=== PATIENT | female | born 1945 | race African-American/Black ===

== ENCOUNTER 2018-05-18 22:14 | Inpatient (IN) | payer MEDICARE ==
[~2018-05-18] VITALS: Ht 160 cm
[~2018-05-18 22:14] MED LIST: ALBUTEROL2.5 MG/0.5 INH; ALDACTONE25 MG PO; BENADRYL INJ50 MG/ML IV; BOUDREAUXS113 GM TP; COMBIVENT INH14.7 GM INH; CORDARONE200 MG PO; COREG 3.1253.125 MG PO; EUCERIN CREAM120 GM TP; EUCERIN ORIGIN500 ML TP; FLAGYL500 MG PO; FLORANEX / LACT1 TAB PO; GYNE-LOTRIMIN45 GM TP; HEPARIN SOD5000 U/ML SQ; HUMALOG 30100 UNITS/; HUMULIN N100 U/ML SC; HYDRALAZINE20 MG/ML IV; HYDROCHLOROTH12.5 M1; IPRAT-ALBUT 0.5-3 ML IH; K-DUR20 MEQ PO; LASIX40 MG PO; LASIX80 MG PO; LISINOPRIL2.5 MG; LOPRESSOR I5 MG/5 ML IV; MEGACE400 MG/10 PO; MOBIC7.5 MG; PEPCID20 MG PO; PROTONIX 40 MG40 MG IV; QUESTRAN PACK4 G/PKT PO; SALINE FLUSH10 ML IV; VANCOCIN HCL250 MG PO; VANCOMYCIN250 MG/51 PO; ZAROXOLYN5 MG PO
[2018-05-18] MEDS ORDERED: CALCIUM 600 +1 EAC3 PO (22:23)
[2018-05-18 23:08] LABS: BASOPHILS 0.2 % (0-2); EOSINOPHILS 0.3 % (0-7); HEMATOCRIT 40.7 % (36.0-48.0); HEMOGLOBIN 13.9 g/dL (12-16); IMMATURE GRANULOCYTES 0.4 % (0-5); LYMPHOCYTES 7.3 % (15-50); MCHC 34.2 g/dL (31.0-37.0); MCV 79.2 fL (80.0-100.0); MEAN PLATELET VOLUME 10.7 fL (7.4-10.4); MONOCYTES 6.7 % (2-11); NEUTROPHILS 85.1 % (40-80); PLATELET COUNT 314 10x3/uL (130-400); RBC 5.14 10x6/uL (4.00-5.40); RDW 15.9 % (11.5-14.5); WBC 12.1 10x3/uL (4.8-10.8)
[2018-05-18 23:17] LABS: ALBUMIN 3.1 g/dL (3.4-5.0); ALKALINE PHOSPHATASE 64 U/L (46-116); ALT (SGPT) 27 U/L (10-68); BILIRUBIN - TOTAL 0.94 mg/dL (0.2-1.3); CALC OSMOLALITY 276 mosm/kg (275-300); CALCIUM 9.6 mg/dL (8.5-10.1); CARBON DIOXIDE 31.2 mmol/L (21.0-32.0); CHLORIDE - SERUM 94 mmol/L (98-107); CREATININE - SERUM 1.5 mg/dL (0.6-1.3); POTASSIUM - SERUM 3.8 mmol/L (3.5-5.1); PROTEIN - SERUM 8.4 g/dL (6.4-8.2); SODIUM 135 mmol/L (136-145); UREA NITROGEN 23 mg/dL (7-18); eGFR NON AFRICAN AMERICAN 36 mL/min (90-120)
[2018-05-18 23:20] LABS: GLUCOSE 159 mg/dL (74-106)
--- NOTE | 2018-05-18 23:20 | NUR ---
PT AMBULATED TO RESTROOM WITH A STEADY GAIT. PT FAMILY AT SIDE. URINE SPECIMEN SENT TO LAB.
[2018-05-18 23:24] LABS: AMYLASE - SERUM 43 U/L (25-115); LIPASE 71 U/L (73-393); PRO BNP 171 pg/mL (0-125)
[2018-05-18 23:30] LABS: TROPONIN-I < 0.017 ng/mL (0.000-0.060)
[2018-05-18 23:57] LABS: APPEARANCE CLEAR (CLEAR); BACTERIA MODERATE /hpf (NONE SEEN); BILIRUBIN NEGATIVE (NEGATIVE); COLOR YELLOW (YELLOW); EPITHELIAL CELLS OCC /hpf (0-5); GLUCOSE NEGATIVE (NEGATIVE); KETONE NEGATIVE (NEGATIVE); NITRITE NEGATIVE (NEGATIVE); PH 7.5 (5.0-6.0); PROTEIN NEGATIVE (NEGATIVE); RED CELLS - URINE RARE /hpf (0-5); UROBILINOGEN NORMAL (NORMAL); WHITE CELLS - URINE 0-5 /hpf (0-5); YEAST <1+ /hpf (NONE SEEN)
[2018-05-18 23:58] LABS: AMORPHOUS SEDIMENT >1+ /lpf (NONE SEEN); GRANULAR CAST RARE /lpf (NONE SEEN); HYALINE CAST 0-5 /lpf (NONE SEEN); WAXY CAST RARE /lpf (NONE SEEN)
[2018-05-19] VITALS (8 sets, daily range): BP systolic 146–179; BP diastolic 74–89; BMI 47.7
--- NOTE | 2018-05-19 01:45 | NUR ---
PT LEFT ED VIA WC FOR CT.
--- NOTE | 2018-05-19 02:00 | NUR ---
PT RETURNED TO ROOM VIA WC. PT RESTING ON BED. PT FAMILY AT BEDSIDE.
--- NOTE | 2018-05-19 04:02 | NUR ---
SOAP SUDS ENEMA PERFORMED AT PT BEDSIDE. PT TOLERATED WELL. BEDSIDE COMMODE IN REACH.
--- NOTE | 2018-05-19 04:55 | NUR ---
PT PLACED BACK IN BED. PT DENIES HAVING A BM, ONLY SOAPY WATER PRESENT IN BEDSIDE COMMODE.
--- NOTE | 2018-05-19 06:01 | NUR ---
PT SLEEPING. PT FAMILY AT BEDSIDE. NO S/S OF ACUTE DISTRESS NOTED AT THIS TIME.
--- NOTE | 2018-05-19 07:00 | NUR ---
PT AWAKE, ALERT AND ORIENTED X 4. RESPIRATIONS EVEN AND NON-LABORED. SKIN W/D. NO DISTRESS NOTED. SPOUSE AT BEDSIDE.
--- NOTE | 2018-05-19 07:21 | NUR ---
PT REPORT GIVEN TO RAFAEL AYALA
--- NOTE | 2018-05-19 07:45 | NUR ---
PT MOVED FROM EXAM ROOM 14 TO EXAM ROOM 5.
--- NOTE | 2018-05-19 08:55 | NUR ---
PT LYING IN BED, FAMILY AT BEDSIDE, PT REQUESTED MOUTH SWABS, GAVE PT SOME LEMON SWABS, NO OTHER NEEDS VOICED, CONTINUE WITH PLAN OF CARE
--- NOTE | 2018-05-19 10:31 | MORECARE ---
CASE MANAGEMENT DISCHARGE SUMMARY PATIENT: GASTON FITZGERALD UNIT: [id number] ADM DATE: 05/19/18 AGE: 72 : 41 SEX: F ROOM/BED: D.E05 AUTHOR: ROBDOC PHYSICIAN: REFERRING PHYSICIAN: HOLLY FRANCOIS MD DATE OF SERVICE: 05/19/18 Discharge Plan Patient Name: GASTON FITZGERALD Facility: [facility]:[place] : 1945 Planned Disposition: Anticipated Discharge Date: 05/21/18 Discharge Date: Expected LOS: 2 Initial Reviewer: [email or web address] Initial Review Date: 05/19/2018 Generated: 05/19/18 11:31 am DCP- Discharge Planning Updated by [email or web address]: Oanh Altman on 05/19/18 9:[address] Patient Name: GASTON FITZGERALD Admission Status: ER Accout number: [id number] Admission Date: 05-19-2018 : 1945 Admission Diagnosis: Attending: HOLLY FRANCOIS Current LOS: 1 Anticipated DC Date: 05-21-2018 Planned Disposition: Primary Insurance: [facility] [employer] Discharge Planning Comments: CM met with patient and her son Catracho to complete initial dc planning assessment. CM educated patient on the CM role and verbal consent given by patient to complete assessment. Patient lives at home with her . She reports she is independent in her ADL"s and IADL"s. At discharge patient plans to return home with her and feels this is a safe discharge. Patient denied known discharge needs at this time. CM will continue to follow and will assist as needed with dc plans/needs. Puppet Master: Oanh Altman RN, [facility] DCPIA - Discharge Planning Initial Assessment Updated by [id number]: Oanh Altman on 05/19/18 10:28 am * Is the patient Alert and Oriented? Yes * How many steps to enter\\exit or inside your home? * PCP Dr. Angel Treviño * Pharmacy [facility] in [place] * Preadmission Environment Home with Family * ADLs Independent * Equipment Cane * List name and contact numbers for known caregivers / representatives who currently or will assist patient after discharge: Catracho Gonzalez - son - [phone] * Verbal permission to speak to the caregivers and representatives has been obtained from the patient. Yes * Community resources currently utilized None * Additional services required to return to the preadmission environment? No * Can the patient safely return to the preadmission environment? Yes * Has this patient been hospitalized within the prior 30 days at any hospital? No Patient Name: GASTON FITZGERALD Page [id number] at 1031 All edits/amendments must be made on the electronic document DICTATION DATE: 05/19/18 1031 WALL COVERING CONTRACTOR: BERNABE 05/19/18 1031 RPT#: [id number] DC DATE: STATUS: ADM IN [facility] [address] [place] [address] END OF REPORT
--- NOTE | 2018-05-19 13:50 | NUR ---
ARRIVE TO ROOM VIA WHEELCHAIR FROM ER ACCOMPANIED BY SON. VITALS STABLE. NOT ACTIVELY VOMITING. IV RT AC INFUSING LR @ 100mL/HR. CONSULT TO COMPLETE. REFUSE SCDs. NO TELEMETRY DUE TO SHORTAGE OF MONITORS. ADMISSION PROCESS. BED LOCKED AND LOW. CALL LIGHT IN REACH. TWO SIDERAILS UP.
--- NOTE | 2018-05-19 16:18 | NUR ---
ALERT AND ORIENTED X4. RESTING IN BED. QUEVEDO, NG TUBE, AND ENEMA ORDERED. NOT COMPLETE DUE TO NO SUPPLIES. CENTRAL SUPPLY NOTIFIED AND SUPPLIES ORDERED.
[2018-05-19 18:10] LABS: APTT 32.5 SECONDS (22.8-39.4)
[2018-05-19 18:12] LABS: INR 1.22 (0.85-1.17); PROTIME 14.9 SECONDS (11.6-15.0)
--- NOTE | 2018-05-19 19:26 | NUR ---
ALERT AND ORIENTED X4. SITTING UP IN BED. QUEVEDO PLACED 16FR. URINE LIN IN COLOR. UA COLLECTED AND SENT TO LAB. NG TUBE DROPPED. STAT CHEST XRAY ORDERED. POONAM ZACARIAS RESUMES PLAN OF CARE.
--- NOTE | 2018-05-19 20:15 | NUR ---
PT RESTING WITH EYES CLOSED, RESP QUIET, NO DISTRESS NOTED, LEFT UNDISTURBED AT THIS TIME
--- NOTE | 2018-05-19 20:30 | NUR ---
ASSESSMENT PER FLOW SHEET, IV IN RIGHT AC INTACT WITH NO REDNESS OR EDEMA INFUSING NS AT 100 ML/HR, RE-TAPED NG TUBE PER PT'S REQUESTS, QUEVEDO CATH INTACT DRAINING DARK YELLOW URINE, PT REFUSES SCD'S, PT REQUESTED AND PROVIDED CUP OF ICE, AND TISSUE, DENIES FURTHER NEEDS OR PAIN, BED IN LOW POSITION, SIDE RAILS X 2, CALL LIGHT IN REACH, PT'S SON AT BEDSIDE
--- NOTE | 2018-05-19 21:00 | NUR ---
GÉNESIS VARGHESE RN REPORTS THAT SHE SPOKE TO MARIAM DAY RN, FOREIGN LAW CONSULTANT AND STATES THAT RADIOLOGY REPORT SHOWS NG TUBE IN PLACED CORRECTLY AND TO GO AHEAD AND HOOK TO SUCTION
--- NOTE | 2018-05-19 21:30 | NUR ---
THIS RN AND RAFAEL MELTON FROM [facility] 3 MOVED PT TO ROOM 1223 DUE TO SUCTION NOT WORKING, SUCTION STARTED PER MD ORDERS, SEE EMAR, PT PROVIDED CUP OF ICE, ORIENTED TO ROOM, BED IN LOW POSITION, SIDE RAILS X 2, CALL LIGHT IN REACH, PT'S SON AT SIDE
--- NOTE | 2018-05-19 23:30 | NUR ---
THIS RN AND KASSIE MCPHERSON RN IN ROOM TO DO ENEMA, PT VERBALIZES UNDERSTANDING OF ENEMA, PT TOLERATED WELL, PT INST TO HOLD LONG SHE CAN AND TO USE CALL LIGHT IN READY
--- NOTE | 2018-05-19 23:52 | NUR ---
PT PLACED ON BED CAI AT THIS TIME, NEW BAG OF NS HUNG PER MD ORDERS, SEE EMAR, PT HAS CALL LIGHT IN HAND
[2018-05-20] VITALS: BP 177/84
--- NOTE | 2018-05-20 00:23 | NUR ---
PT REMOVED FROM BED CAI, PT HAD LIQUIDY STOOL, PT CLEANED UP WITH WET WIPES, PT POSITIONED SELF IN BED, REQUESTED AND SERVED CUP OF ICE, DENIES FURHTER NEEDS OR PAIN, SHEET PROVIDED TO PT'S SON, BED IN LOW POSITION, SIDE RAILS X 2, CALL LIGHT IN REACH
--- NOTE | 2018-05-20 01:15 | NUR ---
PT RESTING WITH EYES CLOSED, RESP QUIET, NO DISTRESS NOTED, LEFT UNDISTURBED AT THIS TIME, PT'S SON ASLEEP AT BEDSIDE
--- NOTE | 2018-05-20 03:42 | NUR ---
PT RESTING WITH EYES CLOSED, RESP QUIET, NO DISTRESS NOTED, LEFT UNDISTURBED AT THIS TIME, BED IN LOW POSITION, SIDE RAILS X 2, CALL LIGHT IN REACH, PT'S SON ASLEEP AT BEDSIDE
[2018-05-20 04:00] VITALS: BP 172/81
--- NOTE | 2018-05-20 04:00 | NUR ---
VS OBTAINED PER SUDEEP ALEMAN, THIS RN CLEARED PUMPS, MARKED NG CANISTER, AND EMPTIED QUEVEDO, PT DENIES NEEDS OR PAIN AT THIS TIME, BED IN LOW POSITION, SIDE RAILS X 2, CALL LIGHT IN REACH, PT'S SON AT BEDSIDE ASLEEP
--- NOTE | 2018-05-20 06:42 | NUR ---
LAB TO ROOM FOR AM BLOOD DRAW, PT DENIES NEEDS OR PAIN AT THIS TIME
[2018-05-20 07:24] LABS: BASOPHILS 0.2 % (0-2); EOSINOPHILS 1.9 % (0-7); HEMATOCRIT 36.1 % (36.0-48.0); IMMATURE GRANULOCYTES 0.3 % (0-5); LYMPHOCYTES 8.6 % (15-50); MCH 26.3 pg (26.0-34.0); MCHC 33.2 g/dL (31.0-37.0); MEAN PLATELET VOLUME 10.5 fL (7.4-10.4); MONOCYTES 9.1 % (2-11); NEUTROPHILS 79.9 % (40-80); PLATELET COUNT 259 10x3/uL (130-400); RBC 4.57 10x6/uL (4.00-5.40); RDW 16.2 % (11.5-14.5); WBC 11.1 10x3/uL (4.8-10.8)
[2018-05-20 07:43] LABS: ALBUMIN 2.4 g/dL (3.4-5.0); ANION GAP 15.6 mmol/L (8-16); BILIRUBIN - TOTAL 0.66 mg/dL (0.2-1.3); CALCIUM 8.7 mg/dL (8.5-10.1); CARBON DIOXIDE 26.7 mmol/L (21.0-32.0); MAGNESIUM - SERUM 2.4 mg/dL (1.8-2.4); PHOSPHOROUS 3.7 mg/dL (2.5-4.9); POTASSIUM - SERUM 3.3 mmol/L (3.5-5.1); PROTEIN - SERUM 6.7 g/dL (6.4-8.2)
--- NOTE | 2018-05-20 08:39 | NUR ---
ALERT AND ORIENTED. RESP EVEN AND UNLABORED. NO C/O PAIN. CL IN REACH.
[2018-05-20 13:22] VITALS: BMI 47.6
--- NOTE | 2018-05-20 14:25 | NUR ---
NO CHANGE IN ASSESSMENT. FAMILY IN ROOM. WILL BE TRANSFERING TO ACUTE UNIT WHEN ROOM CLEAN. SCHEDULED FOR SURGERY ON 05/21/18.
--- NOTE | 2018-05-20 15:36 | NUR ---
TRANSFERING TO ROOM 2206 ACUTE UNIT. REPORT GIVEN TO CLARA LEVIN.
[2018-05-20 20:17] VITALS: BP 167/84
[2018-05-21 01:10] VITALS: BP 174/80
[2018-05-21 04:27] LABS: BASOPHILS 0.2 % (0-2); EOSINOPHILS 2.2 % (0-7); HEMATOCRIT 36.6 % (36.0-48.0); HEMOGLOBIN 12.1 g/dL (12-16); IMMATURE GRANULOCYTES 0.4 % (0-5); MCH 26.3 pg (26.0-34.0); MCHC 33.1 g/dL (31.0-37.0); MCV 79.6 fL (80.0-100.0); MEAN PLATELET VOLUME 11.1 fL (7.4-10.4); MONOCYTES 12.4 % (2-11); NEUTROPHILS 76.8 % (40-80); PLATELET COUNT 260 10x3/uL (130-400); RDW 16.2 % (11.5-14.5); WBC 10.2 10x3/uL (4.8-10.8)
[2018-05-21 04:47] LABS: CALCIUM 8.6 mg/dL (8.5-10.1); CARBON DIOXIDE 25.4 mmol/L (21.0-32.0); CREATININE - SERUM 0.9 mg/dL (0.6-1.3); POTASSIUM - SERUM 3.4 mmol/L (3.5-5.1)
[2018-05-21 05:36] VITALS: BP 168/68
--- NOTE | 2018-05-21 06:51 | NUR ---
PATIENT AND SON IN ROOM WHEN PATIENT INFORMED ABOUT SURGERY. STATED THAT THEY HAD NOT BEEN TOLD THAT THERE WOULD BE ONE UTILL NOW. SON VERY UPSET TALKED WITH THEM AND ROLL RECLAIMER SPOKE WITH THEM. THEY WISH TO TALK WITH DR WYNN BEFOR CONSENTS ARE SIGENED, AGREAD TO CALL SURGERY THIS AM BEFORE SURGEY AND ASK DR WYNN TO COME SPEAK WITH THEM. CALLED SURGERY THIS AM , SURGERY STAFF STATED THEY WOULD CONTACT ALCIRA WYNN AND LET HIM KNOW, ANOUTHER WAS TILE SORTER OVERNIGHT, PATIENT AND FAMILY AT BEDSIDE INFORMED.
--- NOTE | 2018-05-21 08:30 | NUR ---
PT RESTING IN BED WITH TOWEL OVER EYES. SON AT BEDSIDE. "WANTING TO SEE SURGEON PRIOR TO SX". NO S/S OF ACUTE DISTRESS. CL IN PLACE. SX NOTIFIED AND SPOKE WITH RANDA PER PT REQUEST.
[2018-05-21 08:45] VITALS: BP 170/84
--- NOTE | 2018-05-21 10:34 | NUR ---
LATE ENTRY 1000:SPOKE WITH NON DESTRUCTIVE TESTING INSPECTOR ABOUT PT NEEDING BP MEDS. PT SCHEDULED FOR SX TODAY. APRESOLINE ORDERED PRN AND GIVEN PER MD ORDER. NO S/S OF ACUTE DISTRESS. SON AT BEDSIDE.
[2018-05-21 12:59] VITALS: BP 164/68
[2018-05-21 17:01] VITALS: BP 166/73
--- NOTE | 2018-05-21 19:30 | NUR ---
PT IN OR AT THIS TIME.
--- NOTE | 2018-05-21 20:04 | NUR ---
PT IN SURGERY.
--- NOTE | 2018-05-21 23:16 | NUR ---
PT ARRIVED TO PACU AT 96.8 TEMPORAL - JARED HUGGER PLACED. WARM IV FLUIDS HUNG. BP MONITORING UNRELIABLE - BP CUFF CHANGED AND MOVED TO E. RELIABLE RESULTS ACHIEVED.
--- NOTE | 2018-05-21 23:18 | NUR ---
2100 - BP REMAINS IN THE 70S SYSTOLIC - 1000ML BOLUS WARM NS INITIATED VIA PRESSURE BAG.
--- NOTE | 2018-05-21 23:59 | NUR ---
PT ARRIVED TO FLOOR WITH SURGICAL TEAM, ISATU, C/O BACK PAIN
[2018-05-22] VITALS (78 sets, daily range): BP systolic 62–199; BP diastolic 21–96; Ht 160 cm
[2018-05-22 00:27] LABS: HEMATOCRIT 36.1 % (36.0-48.0); HEMOGLOBIN 11.6 g/dL (12-16); LYMPHOCYTES 10.8 % (15-50); MCH 26.2 pg (26.0-34.0); MCHC 32.1 g/dL (31.0-37.0); MCV 81.5 fL (80.0-100.0); MEAN PLATELET VOLUME 10.4 fL (7.4-10.4); PLATELET COUNT 242 10x3/uL (130-400); RBC 4.43 10x6/uL (4.00-5.40); RDW 16.1 % (11.5-14.5); WBC 11.2 10x3/uL (4.8-10.8)
[2018-05-22 00:39] LABS: BILIRUBIN - TOTAL 1.33 mg/dL (0.2-1.3); CALCIUM 7.2 mg/dL (8.5-10.1); CARBON DIOXIDE 19.1 mmol/L (21.0-32.0)
[2018-05-22 00:45] LABS: ALBUMIN 1.4 g/dL (3.4-5.0); ANION GAP 18.5 mmol/L (8-16); CREATININE - SERUM 1.5 mg/dL (0.6-1.3); POTASSIUM - SERUM 4.6 mmol/L (3.5-5.1); PROTEIN - SERUM 4.5 g/dL (6.4-8.2)
--- NOTE | 2018-05-22 01:00 | NUR ---
PT RESTING IN BED, C/O LOWER BACK PAIN 6/10 PAIN SCALE, SINUS TACH@116 ON CM, B/P 100/54(62), X2 OZIEL DRAINS NUMBERED 1 FOR RIGHT SIDE AND 2 FOR LEFT SIDE, WOUND VAC ON MIDLINE INCISION, TRIPPLE LUMEN CVL INFUSING MEDS PER JUL, RT PIV SALINE LOCKED, QUEVEDO TO GRAVITY DRAIN, ON 3L/MIN VIA NC, FAMILY AT BEDSIDE, PPP WILL CONTINUE TO ASSESS
--- NOTE | 2018-05-22 02:30 | NUR ---
CVP LINE PLACED ON BLUE CVL ACCESS LINE BY TYREL LEVIN AND MYSELF, CVP LINE READING CONFIRMED WITH GOOD WAVEFORM ON MONITOR, PT ASKING FOR SMALL FAN, UNABLE TO FIND FAN, PT TEMP 97.8 DEG. ORAL, SINUS TACH @117bpm ON CM, B/P LABILE, PT AAO, WILL CONTINUE TO ASSESS
--- NOTE | 2018-05-22 03:43 | NUR ---
ASSESSED PT WITH BILAT PUPILS DIALATED TO 6MM AND FIXED, NO PULSE NOTED WITH RYTHM ON CM, CODE BLUE CALLED, REFER TO CODE SHEET FOR FURTHER.
[2018-05-22 03:53] LABS: HEMATOCRIT 36.2 % (36.0-48.0); HEMOGLOBIN 11.4 g/dL (12-16); LYMPHOCYTES 16.9 % (15-50); MCH 26.2 pg (26.0-34.0); MCHC 31.5 g/dL (31.0-37.0); MCV 83.2 fL (80.0-100.0); MEAN PLATELET VOLUME 10.6 fL (7.4-10.4); NEUTROPHILS 76.8 % (40-80); PLATELET COUNT 221 10x3/uL (130-400); RBC 4.35 10x6/uL (4.00-5.40); RDW 16.4 % (11.5-14.5)
[2018-05-22 03:54] LABS: WBC 15.5 10x3/uL (4.8-10.8)
[2018-05-22 04:05] LABS: CALCIUM 7.5 mg/dL (8.5-10.1); CARBON DIOXIDE 15.4 mmol/L (21.0-32.0)
[2018-05-22 04:06] LABS: ANION GAP 25.1 mmol/L (8-16); CREATININE - SERUM 2.1 mg/dL (0.6-1.3); POTASSIUM - SERUM 6.5 mmol/L (3.5-5.1)
--- NOTE | 2018-05-22 04:35 | NUR ---
DR WYNN CALLED BACK, UPDATE GIVEN ON SITUATION, ORDERS RECEIVED TO INFUSE x3 AMPS SODIUM BICARB IN 1000mL D5NS TO INFUSE AT 150 ML/HR, ALSO STATED TO STOP INFUSING LACTATED RINGERS AND D5, INFORMED TO CONTINUE INFUSING ALL OTHER MEDS. WILL CONTINUE TO ASSESS, FAMILY AT BEDSIDE
--- NOTE | 2018-05-22 06:09 | NUR ---
NO PULSE WITH PALPATION OR DOPLER, ELECTICAL ACTIVITY NOTED ON CM, PUPILS FIXED AND NON-REACTIVE @5MM BILAT, CODE CALLED, REFER TO CODE SHEET FOR FURTHER.
--- NOTE | 2018-05-22 06:30 | NUR ---
DR.TUCKER HAMM, UPDATE GIVEN, ORDERS RECEIVED TO BOLUS 3 LITERS 0.9%NS,
--- NOTE | 2018-05-22 07:00 | NUR ---
REC'D REPORT AND RESUMED CARE, ETT TO VENTILATION AND SECURED, POST PEA CODE, MONITOR SHOWING NSR 97, BP 64/47, FLUID CHALLENGE INFUSING, LEFT IJ TL WITH BICARB GTT AT 150 CC/HR LEVAPHED AT 11 MCG, AND PROPOFAL AT 15 MCG, RIGHT NARE NGT IN PLACE WITH GREEN DRAINAGE TO CANISTER, MIDLINE ABDOMINAL INCISION TO WV WITH BLOODY DRAINAGE TO CANISTER, B/L OZIEL DRAINS WITH 5 CC SROSANGUINOUS DRAINAGE TO COLLASPED BULB, QUEVEDO TO GRAVITY WITH YELLOW DRAINAGE TO BAG, SCD TO RIGHT LEG AND BP CUFF TO LEFT, PC TO DR. WYNN, NEW ORDERS GIVEN, 07 PRBC INTITIATED, AT 150 CC/HR, 2 LITER NS INITITATED AND 2 AMPS BICARB GIVEN PER ORDER 07 1 AMP OF BICARB GIVEN PER ORDER
[2018-05-22 07:04] LABS: HEMATOCRIT 24.9 % (36.0-48.0); HEMOGLOBIN 7.9 g/dL (12-16); LYMPHOCYTES 18.5 % (15-50); MCHC 31.7 g/dL (31.0-37.0); MEAN PLATELET VOLUME 10.5 fL (7.4-10.4); PLATELET COUNT 169 10x3/uL (130-400); RBC 2.93 10x6/uL (4.00-5.40); RDW 16.3 % (11.5-14.5); WBC 10.2 10x3/uL (4.8-10.8)
--- NOTE | 2018-05-22 07:50 | OP ---
PATIENT NAME: GASTON FITZGERALD MEDICAL RECORD: [id number] :41 LOCATION:[facility] D.2306 ADMISSION DATE:05/19/18 SURGEON: SCARLETT WYNN MD DATE OF OPERATION: 05/21/2018 SURGEON: Scarlett Wynn MD PREOPERATIVE DIAGNOSES: 1. Incarcerated incisional hernia repair. 2. Large bowel obstruction. 3. Morbid obesity. 4. Congestive heart failure. POSTOPERATIVE DIAGNOSES: 1. Incarcerated incisional hernia repair. 2. Large bowel obstruction. 3. Morbid obesity. 4. Congestive heart failure. PROCEDURE PERFORMED: Exploratory laparotomy, incarcerated incisional hernia repair with mesh, right hemicolectomy wound VAC placement greater than 50 square cm in left, ultrasound IJ, CVL placement. ANESTHESIA: General. WOUND CLASS: Grossly contaminated. ESTIMATED BLOOD LOSS: 400 cc. COMPLICATIONS: None. SPECIMENS: Right colon. OPERATIVE COURSE: After consent was obtained, the patient was taken to the operating room and placed in supine position on the operating table. Next, general anesthesia was given via endotracheal intubation after a timeout was taken to confirm the correct patient and procedure. The abdomen was prepped and draped in typical sterile fashion. Ioban dressing was placed. Previous midline abdominal incision was opened using a 10-blade scalpel. Dissection through subcutaneous tissue continued with electrocautery. The cecum was immediately located in the subcutaneous tissue, it was markedly dilated and it was noted to be quite dusky at this time. A second hernia defect was noted containing portions of the transverse colon which were again incarcerated and unable to be reduced. Dissection continued both above and below both hernia defects. A third hernia defect was identified in the inferior portion of the incision at the pubis. The fascia was able to be opened safely at this time. The fascia was opened under direct vision to the pubic tubercle. The bowel was reduced from the hernia at the pubic tubercle. With portion of the fascia opened, the cecum was able to be reduced through the hernia defect. Then, the abdominal cavity was noted. The ascending colon was perforated and there was gross fecal contamination throughout the abdomen. The dissection of the fascia continued and superiorly until all incisional hernia defects were opened in a contiguous fashion. At this time, the transverse colon was able to be reduced. The perforation in the ascending colon was identified and sutured. A right hemicolectomy was then performed using the linear SEAMUS stapler and the Harmonic OPERATIVE REPORT [id number] GASTON FITZGERALDel. The right colon was mobilized off the pelvic side along the white line of Told. Approximately 10 cm of the terminal ileum, GI stapler was used to transect the ileum. The mesentery was taken with the Harmonic scalpel. This was continued to the right branch, the middle colic was identified, which was again taken with the Harmonic scalpel. The middle colic was identified and left intact. The left branch of the middle colic was left intact. The remaining portion of the mesentery was taken with Harmonic scalpel. The right colon was passed off the field and sent for permanent pathology and [id number] ileocolonic anastomosis was performed using the linear SEAMUS stapler. The abdomen was then irrigated with 10 liters of warmed normal saline. There was significant fecal burden noted in the patient's sigmoid colon, rectum, and descending colon, consistent with her history of no bowel movement for 3 weeks. All 4 quadrants were grossly examined and irrigated with 10 liters of normal saline. The NG tube was confirmed to be in the stomach. The ileocolonic anastomosis, the staple line was imbricated using 3-0 Vicryl suture. The mesentery was closed with 3-0 Vicryl suture. At this time, the fascial edges were resected back to clean healthy tissue. All hernia sacs were excised and sent off the field. The subcutaneous tissue flaps were then created in all directions. The fascia was then closed with #1 looped PDS. A Phasix mesh was placed into the anterior abdominal wall and secured in place with 3-0 Vicryl suture. Prior to closing the fascia, all members of the OR team changed gown and gloves. The abdomen was reprepped and draped. The superior and inferior portions of the incision were reapproximated using skin stapler. The middle portion, a silver wound VAC was placed in the middle portion of the incision measuring 10 x 10 x 4 cm. It was placed to suction with good seal. Prior to closure of the fascia, 2 OZIEL drains were placed in both the right and left lower quadrants. OZIEL drain was secured to skin using 2-0 nylon suture. At the end of the case, all needle and instrument counts were correct. No complications occurred. At this time, the left neck was prepped and draped in typical sterile fashion. The left internal jugular vein was identified with the ultrasound. This was cannulated on the first pass. A wire was passed. The needle was removed. The skin incision was made with 11-blade scalpel. The dilator was passed over the wire in standard Seldinger fashion. The catheter was then passed over the wire in a standard Seldinger fashion. A Biopatch was placed. It was secured to the skin using 2-0 nylon suture and a sterile Tegaderm dressing. At the end of the case, a chest x-ray was performed to confirm placement at the CVL. TRANSINT:[id number] Voice Confirmation ID: [id number] DOCUMENT ID: [id number] SCARLETT WYNN MD at 0750 CC: [id number] DICTATION DATE: 05/21/182231 DENTURE PROCESSOR: 05/22/18 0117 ADM IN [facility] [address] [place] [address]
[2018-05-22 07:52] LABS: BILIRUBIN - TOTAL 0.99 mg/dL (0.2-1.3); CALCIUM 7.5 mg/dL (8.5-10.1); CREATININE - SERUM 2.4 mg/dL (0.6-1.3)
[2018-05-22 08:16] LABS: ALBUMIN 0.8 g/dL (3.4-5.0); ANION GAP 30.9 mmol/L (8-16); POTASSIUM - SERUM 3.9 mmol/L (3.5-5.1); PROTEIN - SERUM 2.9 g/dL (6.4-8.2)
--- NOTE | 2018-05-22 09:00 | NUR ---
DR DEAN AT BEDSIDE, RIGHT RADIAL MICHAELA PLACE, LINE ZEROED SBP IN 70'S, FULIUID CHALLENGE INFUSING AT THIS TIME
--- NOTE | 2018-05-22 09:15 | NUR ---
ECHO COMPLETED AT BEDSIDE
--- NOTE | 2018-05-22 09:36 | NUR ---
Nutrition follow-up: Pt s/p bowel surgery, code blue Intubated at this time Labs reviewed NPO WT: [id number]# Will need nutrition support started if pt remains intubated. May need to consider ProcalAmine PPN short term. RDN following.
--- NOTE | 2018-05-22 09:40 | NUR ---
FAMILY AT BEDSIDE, STATUS UPDATED, VOICES NO OTHER NEEDS AT THIS TIME
--- NOTE | 2018-05-22 10:20 | NUR ---
DR RAMOS AT BEDSIDE FOR EVAL
--- NOTE | 2018-05-22 11:43 | NUR ---
SBP VIA NAVEEN 62, VASSOPRESSIN 0.04 UNITS/MIN INITITATED PER ORDER
[2018-05-22 12:39] LABS: ALBUMIN 1.9 g/dL (3.4-5.0); CALCIUM 7.2 mg/dL (8.5-10.1); CARBON DIOXIDE 18.2 mmol/L (21.0-32.0); CREATININE - SERUM 2.2 mg/dL (0.6-1.3); POTASSIUM - SERUM 4.2 mmol/L (3.5-5.1)
[2018-05-22 12:52] LABS: HEMATOCRIT 35.7 % (36.0-48.0); HEMOGLOBIN 11.6 g/dL (12-16); LYMPHOCYTES 12.1 % (15-50); MCH 27.6 pg (26.0-34.0); MCHC 32.5 g/dL (31.0-37.0); MCV 84.8 fL (80.0-100.0); NEUTROPHILS 85.3 % (40-80); PLATELET COUNT 138 10x3/uL (130-400); RBC 4.21 10x6/uL (4.00-5.40); WBC 8.3 10x3/uL (4.8-10.8)
--- NOTE | 2018-05-22 14:42 | NUR ---
AND SON AT BEDSIDE FOR VISIT AND PRAYER
--- NOTE | 2018-05-22 19:00 | NUR ---
RECEIVED PATIENT FROM DAY SHIFT RN, SEDATED AND PARALYZED VIA DRIPS-SEE FLOWSHEET. NO MOVEMENT NOTED. TRAIN OF FOUR IS 0, WILL TITRATE ACCORDINGLY. PUPILS EQUAL AND REACTIVE. BEDSIDE BENDER MACHINE OPERATOR READING NSR. LEVOPHED AND VASOPRESSIN INFUSING TO MAINTAIN MAP>60, WILL ALSO TITRATE. RIGHT A-LINE AND LEFT IJ PRESENT. AFEBRILE. PATIENT ON MECH VENT, SEE FLOWSHEET FOR SETTINGS. NGT TO RIGHT NARE TO LIWS DRAINING DK GREEN GASTRIC CONTENTS. MIDLINE ABDOMINAL INCISION WITH WOUND VAC. MULTIPLE FAMILY MEMBERS IN THE WAITING ROOM. WILL MONITOR CLOSELY THROUGH OUT THE NIGHT.
--- NOTE | 2018-05-22 21:00 | NUR ---
PM MEDS GIVEN PER MD ORDERS, SEE JUL. VSS. NO ACUTE CHANGES NOTED AT THIS TIME. WILL CTM.
--- NOTE | 2018-05-22 23:30 | NUR ---
VECURONIUM DELAYED FOR 30 MINUTES IN EFFORT TO ILICIT A RESPONSE ON TOF. NO TWITCHES NOTED. VEC DECREASED AT 2300 TO 0.2MCG/KG/MIN. BP AND HR STABLE AT THIS TIME. NO ACUTE CHANGES NOTED. WILL CTM.
[2018-05-23] VITALS (74 sets, daily range): BP systolic 61–129; BP diastolic 23–87
--- NOTE | 2018-05-23 01:30 | NUR ---
PATIENT APPEARS TO BE RESTING COMFORTABLY. VSS. LEVOPHED DECREASED TO 25 MCG/MIN @ 0019 AND THEN AGAIN @ 0130 TO 20 MCG/MIN. VEC ALSO DECREASED @ 0050 TO 0.1 MCG/KG/MIN, STILL NO TWITCHES SEEN WITH TOF. WILL CTM.
--- NOTE | 2018-05-23 03:30 | NUR ---
STILL TITRATING LEVO, @ 15MCG/MIN AT THIS TIME, TOLERATING WELL. VEC ALSO DECREASED @ 0250 TO 0.05 MCG/KG/MIN. TOF EKG PADS CHANGED ALSO SITE CHANGED TO ILICIT A RESPONSE, NONE NOTED.
[2018-05-23 04:26] LABS: HEMATOCRIT 31.2 % (36.0-48.0); HEMOGLOBIN 10.4 g/dL (12-16); MCH 27.3 pg (26.0-34.0); MCHC 33.3 g/dL (31.0-37.0); MEAN PLATELET VOLUME 11.1 fL (7.4-10.4); RBC 3.81 10x6/uL (4.00-5.40)
[2018-05-23 04:30] LABS: MCV 81.9 fL (80.0-100.0); PLATELET COUNT 79 10x3/uL (130-400); WBC 14.6 10x3/uL (4.8-10.8)
[2018-05-23 04:32] LABS: POTASSIUM - SERUM 4.5 mmol/L (3.5-5.1); VANCOMYCIN - RANDOM 9.7 ug/mL (10.0-20.0)
[2018-05-23 04:50] LABS: ANION GAP 18.6 mmol/L (8-16); CALCIUM 6.6 mg/dL (8.5-10.1); CARBON DIOXIDE 25.9 mmol/L (21.0-32.0); CREATININE - SERUM 3.1 mg/dL (0.6-1.3)
--- NOTE | 2018-05-23 05:00 | NUR ---
LEVO DECREASED TO 10MCG/MIN @ 0430, MAP > 60. VSS. BLADDER PRESSURES MONITORED THROUGH OUT THE NIGHT, NONE > 20. MINIMAL URINE OUTPUT NOTED, MD'S AWARE.
[2018-05-23 06:55] LABS: LYMPHOCYTES 3 % (15-50); MONOCYTES 1 % (2-11); NEUTROPHILS 61 % (40-80)
--- NOTE | 2018-05-23 07:00 | NUR ---
REC'D REPORT AND RESUMED CARE, CONTINUES ON VENT, ETT SECURED, WITH 80% FIO2, HYPOTENSIVE, 77/42, LEVAPHED AT 10 MCG INFUSING, VASSOPRESSIN AT 0.04 UNITS/H, BICARB GTT AT 75 CC/HR, PROPOFAL AT 10 MCG, VEC GTT AT 0.05 MCG/G/HR, NS AT 50 CC/HR, NGT TO RIGHT NARE WITH BROWNISH DRAINAGE TO CANISTER, RIGHT IJ TRIALYSIS SL, LEFT IJ IN PLACE, BOTH WITH CDI DRESSINGS, MIDLINE ABDOMINAL ICISION WITH WV AFFIXED, B/L OZIEL DRAINS WITH BLODDY DRAINAGE TO COLLASPED BULB, QUEVEDO TO GRAVITY WITH YELLOW DRAINAGE TO BAG, NIBP CUFF TO LEFT LEG AND SCD TO RIGHT, BLADDER PRESSURE LINE CHECKED AND ZEROED, RESULT 6, MICHAELA TO RIGHT RADIAL, WAVE FORM DAMPENED, ASSESSMENT COMPLETE PER FLOWSHEET.
--- NOTE | 2018-05-23 08:30 | NUR ---
DR BLANKENSHIP AT BEDSIDE, NEW ORDERS GIVEN, LEVAPHED TIRATED TO 20 MCG, VASOPRESSIN TURNED OFF, AND LR DC'D, OZIEL ON RIGHT EMPTIED WITH 50 CC, AND LEFT WITH 20 CC, PROPOFAL TITRATED TO 5 MCG.
--- NOTE | 2018-05-23 10:30 | NUR ---
Nutrition follow-up: Pt intubated, sedated s/p hemicolectomy Labs reviewed Pressors NGT->LIS Wt: 310# RDN following.
--- NOTE | 2018-05-23 10:55 | NUR ---
SHEOWING AFIB WITH RVE ON MONITOR, RATE 173, DR BLANKENSHIP NOTIFIED, PC TO WILLIAM JAIMES AND ALCIRA DOMINGUEZ, ORDER FOR DIG AND AMNIODERONE GTT
--- NOTE | 2018-05-23 14:25 | NUR ---
PROPOFAL TITRATED TO 5MCG, METOPROLOL 5 MG IV PUSH GIVEN PER DR DOMINGUEZ, HR 120'S BP 62/48
--- NOTE | 2018-05-23 14:34 | NUR ---
VECURONIUM GTT TITRATED OFF
[2018-05-23 15:27] LABS: PLATELET ESTIMATE DECREASED
--- NOTE | 2018-05-23 16:34 | NUR ---
Wound vac dressing changed by Dr. Thompson. Will start M-W-F vac dressing changes on Saturday05/26/18
--- NOTE | 2018-05-23 17:35 | NUR ---
AMNIODERONE TITRATED TO 0.5MG/HR PER ORDER
--- NOTE | 2018-05-23 18:15 | NUR ---
SPOKE WITH ATIF SANCHES, STATED THAT HE AND SIBLINGS WOULD LIKE TO GET A SECOND OPINION FROM A DIFFERENT RENAL DR, WOULD LIKETO HAVE DR. KAMARA BECAUSE HE TOOK CARE OF THEIR MOM 5 YEARS AGO, DISCUSSED WITH HIM THAT DR FORDE IS CHILD PROTECTIVE SERVICES SPECIALIST FOR THE WEEKEND, AND THAT HE WOULD BE THE ONE SEEING HER, AND IF WE WERE TO FIND ANOTHER RENAL DOCTOR WE WOULD HAVE TO TRANSFER PATIENT TO A DIFFIRENT FACILTY AND THAT SHE WAS NOT STABLE ENOUGH FOR TRANSFER.
--- NOTE | 2018-05-23 19:00 | NUR ---
RECEIVED PATIENT FROM DAY SHIFT RN, INTUBATED AND SEDATED. OPENS EYES TO VERBAL COMMAND. INITIAL SHIFT ASSESSMENT COMPLETED, SEE FLOWSHEET. VSS WITH MAX RATE INFUSING OF LEVOPHED AND VASOPRESSIN, SEE IV FLOWSHEET. FAMILY MEMBERS AT BEDSIDE AND IN WAITING ROOM. WILL MONITOR CLOSELY THROUGH OUT THE NIGHT.
--- NOTE | 2018-05-23 19:00 | NUR ---
RECEIVED PATIENT FROM DAY SHIFT RN. PATIENT INTUBATED AND SEDATED. INITIAL SHIFT ASSESSMENT COMPLETE, SEE FLOWSHEET. PATIENT MAXED OUT ON THREE PRESSORS AT THIS TIME, LEVO, CORINNA AND VASO. AMIO ALSO INFUSING FOR HR CONTROL. SPONT EYE OPENING NOTICED, NOT FOLLOWING COMMANDS AT THIS TIME. FAMILY PRESENT AT BEDSIDE AND IN WAITING ROOM.
--- NOTE | 2018-05-23 21:00 | NUR ---
PM MEDS GIVEN PER MD ORDERS, SEE JUL. VSS. NO ACUTE CHANGES NOTED AT THIS TIME. WILL MONITOR CLOSELY THROUGH OUT THE NIGHT.
--- NOTE | 2018-05-23 21:00 | NUR ---
PM MEDS GIVEN PER MD ORDERS, SEE MAR. AMIODARONE INFUSING AND PATIENT CONVERTED TO NSR. VSS. NO OTHER ACUTE CHANGES NOTED AT THIS TIME. WILL CTM.
--- NOTE | 2018-05-23 23:00 | NUR ---
SHIFT REASSESSMENT COMPLETED, SEE FLOWSHEET. PATIENT APPEARS TO BE RESTING COMFORTABLY. WILL CTM.
[2018-05-24] VITALS (81 sets, daily range): BP systolic 65–168; BP diastolic 23–104
--- NOTE | 2018-05-24 01:00 | NUR ---
PATIENT TURNED HEAD ENOUGH TO DISCONNECT HERSELF FROM THE VENT. RESP AND I AT BEDSIDE IMMENDIATELY. PATIENT EYES WIDE OPEN AND SHE IS NODDING HER HEAD IN THE "NO" POSITION. PATIENT REORIENTED TO TIME AND PLACE THEN CALMS DOWN. VSS. WILL CTM.
--- NOTE | 2018-05-24 03:01 | NUR ---
REASSESSMENT COMPLETED, SEE FLOWSHEET. NO ACUTE CHANGES NOTED AT THIS TIME. WILL CTM.
[2018-05-24 03:52] LABS: HEMATOCRIT 28.6 % (36.0-48.0); HEMOGLOBIN 9.4 g/dL (12-16); MCH 27.2 pg (26.0-34.0); MCHC 32.9 g/dL (31.0-37.0); MCV 82.9 fL (80.0-100.0); MEAN PLATELET VOLUME 11.7 fL (7.4-10.4); RBC 3.45 10x6/uL (4.00-5.40); RDW 16.4 % (11.5-14.5); WBC 12.8 10x3/uL (4.8-10.8)
[2018-05-24 03:57] LABS: PLATELET COUNT 63 10x3/uL (130-400)
[2018-05-24 04:02] LABS: ANION GAP 19.2 mmol/L (8-16); CARBON DIOXIDE 26.8 mmol/L (21.0-32.0); CREATININE - SERUM 3.8 mg/dL (0.6-1.3)
[2018-05-24 04:13] LABS: CALCIUM 6.4 mg/dL (8.5-10.1)
[2018-05-24 04:18] LABS: LYMPHOCYTES 4 % (15-50); MONOCYTES 2 % (2-11); NEUTROPHILS 82 % (40-80); PLATELET ESTIMATE DECREASED; PLATELET MORPHOLOGY GIANT PLTS PRESENT
--- NOTE | 2018-05-24 08:30 | NUR ---
PTS FAMILY HAVE SPOKEN WITH RENAL LABORER HEADING, UPDATES PROVIDED. NO ACUTE DISTRESS NOTED. WILL CONTINUE PLAN OF CARE.
--- NOTE | 2018-05-24 10:23 | NUR ---
PT CONVERTED FROM SINUS RHYTHM IN 70S TO NOW UP TO 140 AFIB. TRANSIT BUS DRIVER PAGED.
--- NOTE | 2018-05-24 10:24 | NUR ---
WILL ADMIN ORDERED CALCIUM GLUCONATE WHEN RECIVE FROM PHARMACY.
--- NOTE | 2018-05-24 10:36 | NUR ---
SPOKE WITH POWERHOUSE HELPER IN PERSON, ORDERS RECIEVED.
--- NOTE | 2018-05-24 11:24 | NUR ---
SBP IN 80S PER A LINE. [employer] NOTIFIED, ORDERS RECIEVED TO START CORINNA.
--- NOTE | 2018-05-24 12:13 | NUR ---
LEVOFED, CORINNA, AND VASOPRESSIN TITRATED TO ORDER. CURRENTLY PTS SBP PER A LINE IS TRENDING 70S-80S. FAMILY AT BEDSIDE. UPDATES PROVIDED. WILL CONTINUE PLAN OF CARE.
--- NOTE | 2018-05-24 13:00 | NUR ---
PTS FAMILY AT BEDSIDE. UPDATES GIVEN. WILL CONTINUE PLAN OF CARE.
--- NOTE | 2018-05-24 13:12 | NUR ---
PER DR RAMOS, CALL SURGERY TO SEE IF THEY ARE OKAY TO START TPN.
--- NOTE | 2018-05-24 13:13 | NUR ---
PER SURGERY; OKAY TO START TPN, KEEP PT NPO FOR NOW.
--- NOTE | 2018-05-24 15:25 | NUR ---
MEDIATION COMMISSIONER HAVE SPOKEN WITH FAMILY. ALL QUESTIONS AND CONCERNS ADDRESSED. NO ACUTE DISTRESS NOTED. WILL CONTINUE PLAN OF CARE.
--- NOTE | 2018-05-24 17:25 | NUR ---
NO ACUTE DISTRESS NOTED. PT ON VENT WITH EYES CLOSED. OPENS EYES WHEN SPOKEN TO. TURNED Q2H. WILL CONTINUE PLAN OF CARE.
--- NOTE | 2018-05-24 23:00 | NUR ---
SHIFT REASSESSMENT COMPLETED, SEE FLOWSHEET. VSS. NO CHANGES. WILL CTM.
[2018-05-25] VITALS (93 sets, daily range): BP systolic 84–166; BP diastolic 52–108
--- NOTE | 2018-05-25 01:15 | NUR ---
PATIENT APPEARS TO BE RESTING COMFORTABLY. VSS. NO ACUTE CHANGES NOTED. WILL CTM.
--- NOTE | 2018-05-25 03:00 | NUR ---
NEW THIS ASSESSMENT PATIENT ABLE TO FOLLOW COMMANDS. OPENS EYES AND SQUEEZE ON COMMAND. VSS. REASSESSMENT COMPLETED, SEE FLOWSHEET. WILL CTM.
[2018-05-25 03:57] LABS: HEMATOCRIT 24.7 % (36.0-48.0); HEMOGLOBIN 8.2 g/dL (12-16); MCH 26.8 pg (26.0-34.0); MCHC 33.2 g/dL (31.0-37.0); RBC 3.06 10x6/uL (4.00-5.40); RDW 16.1 % (11.5-14.5)
[2018-05-25 04:07] LABS: MCV 80.7 fL (80.0-100.0)
[2018-05-25 04:08] LABS: PLATELET COUNT 39 10x3/uL (130-400)
[2018-05-25 04:14] LABS: BILIRUBIN - TOTAL 4.83 mg/dL (0.2-1.3); CALCIUM 7.1 mg/dL (8.5-10.1); CARBON DIOXIDE 31.4 mmol/L (21.0-32.0); MAGNESIUM - SERUM 2.6 mg/dL (1.8-2.4); PHOSPHOROUS 4.5 mg/dL (2.5-4.9); PROTEIN - SERUM 4.6 g/dL (6.4-8.2)
[2018-05-25 04:16] LABS: ALBUMIN 2.7 g/dL (3.4-5.0); ANION GAP 12.7 mmol/L (8-16); POTASSIUM - SERUM 4.1 mmol/L (3.5-5.1)
[2018-05-25 04:19] LABS: INR 1.65 (0.85-1.17); PROTIME 19.5 SECONDS (11.6-15.0)
[2018-05-25 04:26] LABS: LYMPHOCYTES 12 % (15-50); MONOCYTES 2 % (2-11); NEUTROPHILS 74 % (40-80); PLATELET ESTIMATE DECREASED; PLATELET MORPHOLOGY GIANT PLTS PRESENT
--- NOTE | 2018-05-25 05:00 | NUR ---
PATIENT APPEARS TO BE RESTING COMFORTABLY. NODS HEAD APPROPRIATELY WITH DAUGHTER AT BEDSIDE. DENIES PAIN AT THIS TIME WHEN THE DAUGHTER ASKED. PATIENT ORIENTED TO PLACE AND TIME. RESP AT BEDSIDE TO DECREASE FiO2 TO 50% BASED ON THIS MORNING'S ABG RESULTS. NO OTHER CHANGES AT THIS TIME. WILL CTM.
--- NOTE | 2018-05-25 07:44 | NUR ---
WAS NOTIFIED OF CRITICALLY LOW PLATELETS OF 39 AT SHIFT REPORT FROM NIGHT NURSE. DR OLEA ROUNDED ON PT AT THIS TIME, NOTIFIED OF THIS ALONG WITH DECREASED H&H, DR OLEA STATED HE WILL PLACE ORDERS.
--- NOTE | 2018-05-25 09:25 | NUR ---
1 U PRBC ORDERED BY RENAL NEEDLE BOARD REPAIRER, 2 U PLATELET APHERESIS ORDERED BY SURGEON. ORDERS CANCELED BY LAB STATING BECAUSE PT DOES NOT HAVE CURRENT UP TO DATE TYPE AND SCREEN. INITIAL BLOOD ORDERS HAVE BEEN REORDERED SINCE CANCELED ACCIDENTLY BY LAB. TYPE AND SCREEN ORDERED. WILL CONTINUE PLAN OF CARE.
--- NOTE | 2018-05-25 11:48 | NUR ---
FAMILY AT BEDSIDE. UPDATES PROVIDED. PT TURNED Q2H. FOLLOWS COMMANDS AND OPENS EYES SPONTANEOUSLY. NO ACUTE DISTRESS NOTED. WILL CONTINUE PLAN OF CARE.
--- NOTE | 2018-05-25 13:49 | NUR ---
TOTAL LINEN CHANGE PROVIDED. PT NOTED TO HAVE SECRETIONS. ALSO AT THIS TIME CVL DRESSING CHANGED, WAS SATURATED FROM ORAL SECRETIONS. NO ACUTE DISTRESS NOTED. PT TURNED Q2H. WILL CONTINUE PLAN OF CARE.
--- NOTE | 2018-05-25 15:50 | NUR ---
NOTED TO HAVE LIGHT GREEN COLORED SECRETIONS ORALLY, DR OLEA NOTIFIED. NO ORDERS RECIEVED. PT TURNED Q2H. WILL CONTINUE PLAN OF CARE.
--- NOTE | 2018-05-25 17:50 | NUR ---
NO ACUTE DISTRESS NOTED. NO CHANGE. PT TURNED Q2H. VSS. WILL CONTINUE PLAN OF CARE.
--- NOTE | 2018-05-25 19:15 | NUR ---
BLADDER PRESSURE ASSESSED @ 11mmHg
--- NOTE | 2018-05-25 19:30 | NUR ---
ASSESSMENT COM[PLETED PER FLOW SHEET, MEDS INFUSING THROUGH LT IJ CVL DRSG C/D/I, RT IJ TRIALYSIS CAPPED OFF, DRSG C/D/I, BILAT OZIEL DRAINS PATENT,COMPRESSED, INSERTION SITE CDI, MIDLINE INCISION C/D/I GUILLAUME INTACT, QUEVEDO TO GRAVITY, CHECKING BLADDER PRESSURE PER ORDERS, ART LINE IN RT RADIAL ARM NOT MONITORING BUT IN PLACE FOR RT ABG'S, PT ON VENT PER ORDERS, IN UPPER SOFT WRIST RESTRAINTS, REMOVED SKIN ASSESSED, REPLACED WITH PULSES CHECKED AND PRESENT, NG TO LIS, VSS, REPLSITIONED IN BED, ORAL CARE COMPLETED, WILL CONTINUE TO ASSESS
--- NOTE | 2018-05-25 20:15 | NUR ---
FAMILY AT BEDSIDE, UPDATE GIVEN, PT VSS, NO ACUTE DISTRESS NOTED, WILL CONTINUE TO ASSESS
--- NOTE | 2018-05-25 23:00 | NUR ---
REASSESSMENT COMPLETED PER FLOW SHEET, PT IN NO ACUTE DISTRESS, VSS, REPOSITIONED, ORAL CARE COMPLETED, NGT TI LIS, SUCTIONED ETT, PPP, WILL CONTINUE TO ASSESS
[2018-05-26] VITALS (100 sets, daily range): BP systolic 85–133; BP diastolic 50–86
--- NOTE | 2018-05-26 | NUR ---
BLADDER PRESSURE ASSESSED @ 14mmHg
--- NOTE | 2018-05-26 03:00 | NUR ---
REASSESSMENT COMPLETED PER PLOW SHEET, REPOSITIONED IN BED, QUEVEDO CARE, SUCTIONIG COMPLETED, VSS, WILL CONTINUE TO ASSESS
--- NOTE | 2018-05-26 05:30 | NUR ---
PT FAMILY AT BEDSIDE, UPDATE GIVEN, VSS
[2018-05-26 05:40] LABS: HEMATOCRIT 26.2 % (36.0-48.0); HEMOGLOBIN 8.9 g/dL (12-16); MCH 27.3 pg (26.0-34.0); MCV 80.4 fL (80.0-100.0); RBC 3.26 10x6/uL (4.00-5.40); RDW 16.2 % (11.5-14.5); WBC 5.7 10x3/uL (4.8-10.8)
[2018-05-26 05:42] LABS: INR 1.36 (0.85-1.17); PROTIME 16.2 SECONDS (11.6-15.0)
[2018-05-26 05:47] LABS: ALBUMIN 2.8 g/dL (3.4-5.0); BILIRUBIN - TOTAL 5.8 mg/dL (0.2-1.3); CALCIUM 7.6 mg/dL (8.5-10.1); CARBON DIOXIDE 32.2 mmol/L (21.0-32.0); CREATININE - SERUM 3.2 mg/dL (0.6-1.3); VANCOMYCIN - RANDOM 21.8 ug/mL (10.0-20.0)
[2018-05-26 05:53] LABS: PLATELET COUNT 83 10x3/uL (130-400)
[2018-05-26 06:00] LABS: POTASSIUM - SERUM 3.2 mmol/L (3.5-5.1)
--- NOTE | 2018-05-26 06:04 | NUR ---
K+ LOW, REPLACING PER ELECTROLYTE PROTOCOL/EMAR, VSS
--- NOTE | 2018-05-26 06:30 | NUR ---
BLADDER PRESSURE MONITOR ZEROED, RECHECKED PRESSURE @ 7mmHg, HAD SECOND RN NICK RN AT BEDSIDE DURING PROCESS
--- NOTE | 2018-05-26 06:45 | NUR ---
PT HAD x1 LIQUID BROWN BM, PARTIAL LINEN CHANGE COMPLETED, WHEN REPOSITIONING PT SPIT UP LIGHT GREEN FLUID FROM MOUTH, DAY SHIFT RN AT BEDSIDE DURING PT MOVEMENT, WILL NOTIFY PHYSICIAN
[2018-05-26 08:18] LABS: ANISOCYTOSIS OCC; EOSINOPHILS 2 % (0-7); HYPOCHROMASIA OCC; LYMPHOCYTES 11 % (15-50); MONOCYTES 6 % (2-11); NEUTROPHILS 52 % (40-80); PLATELET ESTIMATE DECREASED
[2018-05-26 08:19] LABS: ROULEAUX OCC; TOXIC GRANULATION OCC
--- NOTE | 2018-05-26 09:43 | NUR ---
0700 PT RECIEVED SEDATED ON VENT, AC RATE 20 FIO2 40 PEEP 5 NGT LIS, GREEN DRAINAGE FROM NGT AND ORALLY, ORAL CARE AND SUCTIONING DONE, R TRIALYSIS CDI L IJ CVL DRESSING CDI, SEE IV FLOWSHEET, ABD WOUND VAC DRESSING IN PLACE, ABD OZIEL X2 COMPRESSED WITH SEROSANG DRAINAGE, QUEVEDO DRAINING AMBERR URINE, R RADIAL A LINE IN PLACE FOR ABGS BUT NO READINGS, LINENS CHANGED AFTER BM, OPENED AREA TO L LOWER BACK/BUTTOCK. 0800 FAMILY IN ROOM AND UPDATED 0900 AM MEDS GIVEN, TITRATING LEVOPHED TO BP PARAMETERRS
--- NOTE | 2018-05-26 09:53 | NUR ---
Nutrition follow-up: Pt intubated, sedated NPO Received order from Dr. Nava to start TPN; however, now Dr. Nava is deferring nutrition to surgeon who has not ordered nutrition support. RDN will wait for direction from surgeon on nutrition support. Severe metabolic acidosis at this time; maxed out on levophed per nursing NGT->LIWS with green drainage Wt: 331# RDN following.
--- NOTE | 2018-05-26 12:03 | NUR ---
Skin tear noted on back at right side of waistline (in skin fold). There is discoloration (deep purple) from sacrum to waist seen in the creases of the skin folds. Appears as deep tissue injury. Recommend: -Turn/reposition every 2 hours -Keep skin clean and dry -Place pt in a wider bed -Calmoseptine cream to moisture related redness due to incontinence -keep heels bridged to decrease risk of breakdown Wound care will continue monitoring.
--- NOTE | 2018-05-26 12:53 | NUR ---
1100 REPOSITIONED, ORAL CARE DONE 1245 FAMILY HERE FOR VISITATION, UPDATED, DENIES ALL QUESTIONS
--- NOTE | 2018-05-26 13:05 | NUR ---
REPORT GIVEN TO ABENA
--- NOTE | 2018-05-26 14:15 | NUR ---
DR. WYNN AND YENI AT BEDSIDE, WOUND VAC CHANGED AT THIS TIME, PT TOLERATED WELL
--- NOTE | 2018-05-26 15:07 | NUR ---
DR. FRANCOIS AT BEDSIDE, UPDATE GIVEN
--- NOTE | 2018-05-26 16:21 | NUR ---
WOUND VAC DRESSING CHANGED BY DR. WYNN USING SILVER GRANUFOAM.
--- NOTE | 2018-05-26 17:00 | NUR ---
FAMILY AT BEDSIDE, UPDATE GIVEN
--- NOTE | 2018-05-26 21:15 | NUR ---
SON AT BEDSIDE, UPDATE GIVEN, PT RESTING COMFORTABLY IN BED, NO ACUTE DISTRESS NOTED, SUCTIONING COMPLETED, PT HAS COPIOUS ORAL SECRETIONS, ORAL CARE PREFORMED, REPOSITIONED, MEDS GIVEN PER MAR, TITRATING LEVOPHED DRIP TO B/P AND MAP, VSS, WILL CONTINUE TO ASSESS
[2018-05-27] VITALS (45 sets, daily range): BP systolic 83–114; BP diastolic 45–65
--- NOTE | 2018-05-27 04:50 | NUR ---
PT SON AT BEDSIDE, UPDATE GIVEN
[2018-05-27 05:15] LABS: HEPATITIS BE ANTIGEN Negative (Negative)
[2018-05-27 05:28] LABS: HEMATOCRIT 25.8 % (36.0-48.0); HEMOGLOBIN 8.7 g/dL (12-16); MCH 27.3 pg (26.0-34.0); MCHC 33.7 g/dL (31.0-37.0); MCV 80.9 fL (80.0-100.0); PLATELET COUNT 54 10x3/uL (130-400); RBC 3.19 10x6/uL (4.00-5.40); RDW 16.7 % (11.5-14.5); WBC 8.1 10x3/uL (4.8-10.8)
[2018-05-27 05:41] LABS: ANISOCYTOSIS 1+; EOSINOPHILS 1 % (0-7); HYPOCHROMASIA 1+; LYMPHOCYTES 10 % (15-50); MONOCYTES 2 % (2-11); NEUTROPHILS 62 % (40-80); PLATELET ESTIMATE DECREASED; SCHISTOCYTES OCC
[2018-05-27 05:42] LABS: PLATELET MORPHOLOGY NORMAL PLT MORPH
[2018-05-27 06:03] LABS: ALBUMIN 2.7 g/dL (3.4-5.0); ANION GAP 15.8 mmol/L (8-16); BILIRUBIN - TOTAL 6.37 mg/dL (0.2-1.3); CALCIUM 8.3 mg/dL (8.5-10.1); CARBON DIOXIDE 27.9 mmol/L (21.0-32.0); CREATININE - SERUM 3.4 mg/dL (0.6-1.3); MAGNESIUM - SERUM 2.5 mg/dL (1.8-2.4); PHOSPHOROUS 3.6 mg/dL (2.5-4.9); POTASSIUM - SERUM 3.7 mmol/L (3.5-5.1); PROTEIN - SERUM 5.1 g/dL (6.4-8.2)
[2018-05-27 07:26] LABS: HEPATITIS BE ANTIBODY Negative (Negative)
--- NOTE | 2018-05-27 10:12 | NUR ---
Nutrition follow-up: Received order from Dr. Thompson to begin TPN Chart reviewed. TPN ordered. RDN managing.
--- NOTE | 2018-05-27 10:15 | NUR ---
REC'D REPORT AND RESUMED CARE, ETT TO VENT AND SECURED, VSS, NO ACUTE CHANGE FROM PREVIOUS
--- NOTE | 2018-05-27 10:26 | NUR ---
PER DR WYNN; OKAY TO STOP CHECKING BLADDER PRESSURE, DC A LINE, FLUSH NGT QSHIFT TO ENSURE PATENT FLOW TO NGT SUCTION, AND SEE IF OKAY WITH CARIOLOGY TO STOP AMIODARONE IV TO START IV METOPROLOL TO GET PT OFF AMIODARONE GTT. AGA PAGED AT THIS TIME. WAITING FOR CALLBACK.
--- NOTE | 2018-05-27 10:40 | NUR ---
PC FROM DR JALLOH, PROSPER TO DC AMNIODERONE GTT AND ORDER PRN LOPRESSOR 5MG
--- NOTE | 2018-05-27 11:08 | NUR ---
PC TO PHARMACY, SPOKE WITH MACY RE HOLDING OR IF THEY WILL BE REDOSING PATIENT VANC, REPEAT VANC LEVEL 27.5, STATED TO HOLD VANC DOSE FOR NOW
--- NOTE | 2018-05-27 18:00 | NUR ---
TPN INITIATED AT 50 CC/HR PER ORDER
--- NOTE | 2018-05-27 18:25 | NUR ---
MICHAELA CAMPOS PER ORDER WITH CATHETER INTACT, PRESSURE HELD FOR 5 MIN, NO BLEEDING NOTED, GAUZE PRESSURE BANDAGE AFFIXED
--- NOTE | 2018-05-27 19:00 | NUR ---
RECEIVED PATIENT FROM DAY SHIFT RN, INTUBATED AND SEDATED. INITIAL SHIFT ASSESSMENT COMPLETED, SEE FLOWSHEET. VSS. WILL MONITOR CLOSELY THROUGH OUT THE NIGHT.
--- NOTE | 2018-05-27 21:00 | NUR ---
PM MEDS GIVEN PER MD ORDERS, SEE JUL. VSS. NO ACUTE CHANGES NOTED AT THIS TIME. WILL CTM.
--- NOTE | 2018-05-27 23:00 | NUR ---
REASSESSMENT COMPLETED, SEE FLOWSHEET. VSS. WILL CTM.
[2018-05-28] VITALS (22 sets, daily range): BP systolic 80–113; BP diastolic 44–79
--- NOTE | 2018-05-28 01:00 | NUR ---
PATIENT APPEARS TO BE RESTING COMFORTABLY. VSS. NO ACUTE CHANGES NOTED AT THIS TIME. WILL CTM.
--- NOTE | 2018-05-28 03:00 | NUR ---
REASSESSMENT COMPLETED, SEE FLOWSHEET. NEW ETT PLUMMER PLACED ALSO CVL DRESSING CHANGED. CHG AND SURE STEP WIPES USED. PADS CHANGED FROM COPIOUS AMOUNTS OF ORAL SECRETIONS. TOLERATED WELL. WILL CTM.
[2018-05-28 03:36] LABS: HEMATOCRIT 23.9 % (36.0-48.0); HEMOGLOBIN 8.1 g/dL (12-16); MCH 27.4 pg (26.0-34.0); MCHC 33.9 g/dL (31.0-37.0); MCV 80.7 fL (80.0-100.0); RBC 2.96 10x6/uL (4.00-5.40); RDW 16.8 % (11.5-14.5)
[2018-05-28 04:07] LABS: WBC 10.8 10x3/uL (4.8-10.8)
[2018-05-28 04:08] LABS: ALBUMIN 2.8 g/dL (3.4-5.0); ANION GAP 16.9 mmol/L (8-16); CALCIUM 8.1 mg/dL (8.5-10.1); CARBON DIOXIDE 27.7 mmol/L (21.0-32.0); CREATININE - SERUM 3.7 mg/dL (0.6-1.3); MAGNESIUM - SERUM 2.6 mg/dL (1.8-2.4); PHOSPHOROUS 3.4 mg/dL (2.5-4.9); PLATELET COUNT 44 10x3/uL (130-400); POTASSIUM - SERUM 3.6 mmol/L (3.5-5.1); PROTEIN - SERUM 4.7 g/dL (6.4-8.2)
--- NOTE | 2018-05-28 05:00 | NUR ---
NO CHANGES NOTED. SON AT BEDSIDE, UPDATED ON AM LAB RESULTS PER HIS REQUEST. VSS. WILL CTM.
[2018-05-28 05:49] LABS: EOSINOPHILS 1 % (0-7); LYMPHOCYTES 6 % (15-50); MONOCYTES 4 % (2-11); NEUTROPHILS 46 % (40-80); PLATELET ESTIMATE DECREASED; PLATELET MORPHOLOGY NORMAL PLT MORPH
--- NOTE | 2018-05-28 07:00 | NUR ---
VENT ALARMING ORAL ENDOTRACH CARE ADM.
--- NOTE | 2018-05-28 07:48 | NUR ---
REPORT RECEIVED. ASSESSMENT COMPLETE PER FLOW SHEET. VSS. ORAL CARE ADM. REPOSITIONED ON R SIDE. WILL CONTINUE TO MONITOR
--- NOTE | 2018-05-28 09:25 | NUR ---
FAMILY AT BEDSIDE. GIVEN UPDATE
--- NOTE | 2018-05-28 11:20 | NUR ---
REASSESSMENT COMPLET EPER FLOW SHEET. VSS. NO NEW CHANGES WILL CONTINUE TO MONITOR
--- NOTE | 2018-05-28 12:16 | NUR ---
Nutrition follow-up: Intubated, sedated with propofol TPN started @ 50 ml/hr Labs reviewed IVF decreased per nephrology RDN following.
--- NOTE | 2018-05-28 13:00 | NUR ---
COMPLETE LINEN CHANGE ADM. NO NEW CHANGES PT RESTING COMFORTABLY
--- NOTE | 2018-05-28 14:10 | NUR ---
VENT ALARMING. ORAL ENOTRACH CARE ADM. NEEDS MET. WILL CONTINUE TO MONITOR
--- NOTE | 2018-05-28 15:17 | NUR ---
REASSESSMENT COMPLET EPER FLOW SHEET. VSS. ORAL ENODTRACH CARE ADM. DR WYNN AT BEDSIDE. NEW ORDERS RECEIVED AND ADM.
--- NOTE | 2018-05-28 16:32 | NUR ---
WOUND VAC DRESSING CHANGED USING SILVER GRANUFOAM. PT SEDATED/INTUBATED. -150MMHG MOD CONTINUOUS
--- NOTE | 2018-05-28 16:42 | CN ---
PATIENT NAME:GASTON MEYERS MEDICAL RECORD: [id number] : 41 LOCATION:[id number][id number] ADMIT DATE: 05/19/18 ACCOUNT: [id number] CONSULTING PHYSICIAN: ANA LUISA RAMOS MD REFERRING PHYSICIAN: HOLLY FRANCOIS MD DATE OF CONSULTATION: 05/22/2018 CONSULT REQUESTING PHYSICIAN: Dr. MERCEDEZ Thompson REASON FOR CONSULTATION: Vent management status post cardiopulmonary arrest. HISTORY OF PRESENT ILLNESS: Ms. Meyers is a 72-year-old -Burkin[place] female who was admitted on 05/19/2018 with abdominal pain from [facility] and bowel obstruction. The patient underwent a laparotomy yesterday evening for incisional hernia repair and a possible bowel obstruction and adhesions. Postprocedure, the patient coded two time. The patient was intubated, brought into the ICU. Now, she is orally intubated and sedated. The history was taken mainly by talking to the nursing staff and reviewing the patient's note. The patient is paralyzed. REVIEW OF SYSTEMS: As in history of present illness. PAST MEDICAL HISTORY: 1. Congestive heart failure. 2. Hypertension. 3. History of peritonitis. 4. History of wound dehiscence and incisional hernia. PAST SURGICAL HISTORY: 1. She has a hernia repair. 2. She had . ALLERGIES: There are no known drug allergy. MEDICATIONS: On [place] is reviewed. PERSONAL AND SOCIAL HISTORY: Detail is not obtainable. FAMILY HISTORY: Noncontributory. PHYSICAL EXAMINATION: GENERAL: Now, the patient is orally intubated and sedated. VITAL SIGNS: The blood pressure is 64-178/70, pulse is 112, respiration is 21. She is on assist control mechanical ventilation, temperature 95.7, the SpO2 is 98% on 100% assist control. HEENT: Conjunctiva is pale. Sclerae are not icteric. Pupils are equal, round, reactive to light. NECK: Supple, no JVD. CHEST: There is coarse breath sounds bilaterally. HEART: Rhythm regular, normal sound, no murmur. ABDOMEN: Firm, it is distended. There is incision. RECTAL: Deferred. EXTREMITIES: No cyanosis, no clubbing. There is 1+ pedal edema. SKIN: Warm, normal turgor. CENTRAL NERVOUS SYSTEM: The patient is orally intubated, sedated and paralyzed. CONSULT REPORT [id number] GASTON MEYERS IMAGING: Chest radiograph; the ET tube is just above the marli. There is some basilar atelectasis. No pneumothorax. OTHER LABORATORY DATA: CBC: The WBC is 15.5, hemoglobin 11.4, hematocrit is 36.2, the platelet count 221. Chemistry shows sodium 152, potassium 3.9, bicarbonate is 12, BUN is 27, creatinine 2.4, AST is 3651, ALT is 3587, total protein is 2.9. Albumin is 0.8. IMPRESSION: 1. Acute hypoxic hypercapnic respiratory failure. 2. Status post cardiopulmonary arrest status post laparotomy and incisional hernia repair. 3. Metabolic acidosis. 4. Bowel obstruction. 5. Wound dehiscence. 6. History of congestive heart failure. 7. Hypothermia. 8. [id number] renal failure, most likely secondary to acute tubular necrosis. 9. Hypernatremia. 10. Anemia secondary to blood loss. 11. Septic shock. 12. Elevated liver function tests. RECOMMENDATION: 1. We will continue mechanical ventilation, adjust the setting. Keep the peak airway pressure below 40. 2. DVT and GI bleed prophylaxis. 3. Continue bicarbonate drip. 4. Consult nephrology. 5. Cardiology consult. 6. Continue vancomycin and meropenem. 7. Diflucan noted. 8. Follow up labs and chest radiograph. 9. Prognosis is guarded. Dr. Thompson, thank you for involving me in the care of Ms. Meyers. The critical care time is 50 minutes. TRANSINT:[id number] Voice Confirmation ID: [id number] DOCUMENT ID: [id number] ANA LUISA RAMOS MD at 1642 CC: [id number] DICTATION DATE: 05/22/18 1050 DAIRY CONSULTANT: 05/22/18 1147 ADM IN [id number] [place] [address]
--- NOTE | 2018-05-28 17:20 | NUR ---
DR FRANCOIS AND DR WYNN AT BEDSIDE. GIVEN UPDATE. FAMILY GIVEN UPDATE. NEW ORDERS RECIEVED. ADM.
--- NOTE | 2018-05-28 19:00 | NUR ---
RECEIVED PATIENT FROM DAY SHIFT RN. PATIENT INTUBATED AND SEDATED ON PROPOFOL GTT. INITIAL SHIFT ASSESSMENT COMPLETED, SEE FLOWSHEET. VSS. RENAL IS AT BEDSIDE TO BEGIN HD. WILL MONITOR CLOSELY.
--- NOTE | 2018-05-28 21:00 | NUR ---
PM MEDS GIVEN PER MD ORDERS, SEE MAR. BP LOW AT THIS TIME DUE TO HD, WILL MONITOR. FAMILY IN WAITING ROOM.
--- NOTE | 2018-05-28 21:45 | NUR ---
PATIENT WENT BACK INTO UNCONTROLLED AFIB, HR134. DR. WYNN NOTIFIED AND STATED JUST FOLLOW THE ORDERS FOR GIVING METOPROLOL. EKG ALSO DONE AND PLACED IN CHART. HD IS COMPLETE WITH REMOVAL OF 500ML. BP READING IS 100/54 (74). DAUGHTER IS AT BEDSIDE. WILL CTM.
--- NOTE | 2018-05-28 23:30 | NUR ---
PATIENT HR STILL ELEVATED, BP NOW 70S SYSTOLIC, CARDIOLOGY PAGED. DR. JALLOH RETURNED PAGE AND REORDERED AMIOODARONE, SEE MAR. REASSESSMENT COMPLETED, SEE FLOWSHEET. WILL CTM.
[2018-05-29] VITALS (24 sets, daily range): BP systolic 69–107; BP diastolic 42–63
--- NOTE | 2018-05-29 01:00 | NUR ---
PATIENT CONVERTED BACK TO SR @ 0015, HR NOW 79. BP 93/52 (65). COPIOUS AMOUNTS OF GASTRIC CONTENTS CONTINUE TO FLOW FROM PATIENT'S MOUTH. FREQUENT SUCTIONING REQUIRED. WILL CTM.
[2018-05-29 03:51] LABS: HEMATOCRIT 21.7 % (36.0-48.0); HEMOGLOBIN 7.6 g/dL (12-16); MCH 27.2 pg (26.0-34.0); RBC 2.79 10x6/uL (4.00-5.40); RDW 16.9 % (11.5-14.5); WBC 12.7 10x3/uL (4.8-10.8)
[2018-05-29 03:52] LABS: MCV 77.8 fL (80.0-100.0); PLATELET COUNT 43 10x3/uL (130-400)
[2018-05-29 03:56] LABS: INR 1.39 (0.85-1.17); PROTIME 16.5 SECONDS (11.6-15.0)
[2018-05-29 04:12] LABS: EOSINOPHILS 5 % (0-7); LYMPHOCYTES 11 % (15-50); MONOCYTES 3 % (2-11); NEUTROPHILS 47 % (40-80); PLATELET ESTIMATE DECREASED
[2018-05-29 04:17] LABS: ALBUMIN 2.5 g/dL (3.4-5.0); ANION GAP 11.8 mmol/L (8-16); BILIRUBIN - TOTAL 5.79 mg/dL (0.2-1.3); CARBON DIOXIDE 27.6 mmol/L (21.0-32.0); CREATININE - SERUM 3.2 mg/dL (0.6-1.3); MAGNESIUM - SERUM 2.3 mg/dL (1.8-2.4); PHOSPHOROUS 2.9 mg/dL (2.5-4.9); POTASSIUM - SERUM 3.4 mmol/L (3.5-5.1); PROTEIN - SERUM 4.5 g/dL (6.4-8.2); VANCOMYCIN - RANDOM 20.4 ug/mL (10.0-20.0)
--- NOTE | 2018-05-29 06:50 | NUR ---
REPOSITIONED ON R SIDE NEEDS METS
--- NOTE | 2018-05-29 07:23 | NUR ---
REPORT RECIEVED. ASSESSMENT COMPLETE PER FLOW SHEET. POTASSIUM TURNED OFF AND REMOVED FROM PATIENT. WILL UPDATE DR KAMARA. ORAL ENODTRACH CARE ADM. LARGE AMOUNTS OF COPIOUS SECRETIONS NOTED. WILL UPDATE DR WYNN.
--- NOTE | 2018-05-29 08:15 | NUR ---
FIRST UNIT PRBC ADM. WILL CONTINUE TO MONITOR
--- NOTE | 2018-05-29 09:00 | NUR ---
DR WYNN AT BEDSIDE. GIVEN UPDATE. ORDERS RECIEVED TO Laurie JUAREZ DPP, IF PATIENT CONVERTS BACK TO A-FIB PRN METOPROLOL ORDERS IN PLACE TO ADM WHEN NEEDED, CALL DR WYNN IF UNSUCCESSFUL. TUBE FEEDS ARE TO REMAIN ON UNLESS RESIDUALS >250CC. KEEP HOB >[address] WYNN GIVEN UPDATE REGAURDING UNABLE TO GIVE MILK OF MAG R/T RENAL FAILURE. STATED OKAY, NEW ORDERS IN PLACE. WILL ADM. NEEDS MET.
--- NOTE | 2018-05-29 09:39 | NUR ---
FAMILY AT BEDSIDE. GIVEN UPDATE.
--- NOTE | 2018-05-29 09:58 | NUR ---
Nutrition follow-up: Pt intubated, sedated with propofol TPN infusing @ 50 ml/hr Pulmocare now @ 20 ml/hr trickle feeds; to remain on unless residuals are > 250 ml; HOB > 60 degrees labs reviewed Wt: 331# RDN following.
--- NOTE | 2018-05-29 10:00 | NUR ---
FAMILY AT BEDSIDE. GIVEN UPDATE.
--- NOTE | 2018-05-29 10:50 | NUR ---
DR FRANCOIS AT BEDSIDE. GIVEN UDPATE.
--- NOTE | 2018-05-29 11:00 | NUR ---
REASSESSMENT COMPLETE PER FLOW SHEET. VSS. NO NEW CHANGES WILL CONTINUE TO MONITOR
--- NOTE | 2018-05-29 11:50 | NUR ---
DR HYMAN AT BEDSIDE. GIVEN UPDATE. NEW ORDERS RECIEVED.
--- NOTE | 2018-05-29 12:36 | NUR ---
WOUND VAC ALARMING, LEAK NOTED AROUND STAPLE SITE DRSG REAPPLIED. NO LEAK NOTED. NEEDS MET. WILL CONTINUE TO MONITOR
--- NOTE | 2018-05-29 13:02 | NUR ---
RT AT BEDSIDE. NO NEW CHANGES
--- NOTE | 2018-05-29 15:15 | NUR ---
REASSESSMENT COMPLETE PER FLOW SHEET. VSS. NO NEW CHANGES. PT RESTING COMFORTABLY WILL CONTINUE TO MONITOR
--- NOTE | 2018-05-29 17:10 | NUR ---
SOAP TERE ENEMA ADM. LARGE IMPACTION NOTED, REMOVED WITHOUT DIFFICULTY. LARGE AMOUNTS OF LIQUID STOOL NOTED. COMPLETE BB LINE NCHANGE ADM.
--- NOTE | 2018-05-29 18:20 | NUR ---
GERMAN WYNN CALLED, GIVEN UPDATE.
--- NOTE | 2018-05-29 19:00 | NUR ---
RECEIVED PATIENT FROM DAY SHIFT RN. PATIENT INTUBATED BUT SEDATION OFF AT THIS TIME DUE TO LOW BP PER DAY SHIFT RN. INITIAL SHIFT ASSESSMENT COMPLETED, SEE FLOWSHEET. WILL MONITOR CLOSELY THROUGH OUT THE NIGHT.
--- NOTE | 2018-05-29 21:00 | NUR ---
PATIENT FOUND WITH TF EMESIS POURING OUT OF HER MOUTH AND NOSE. DAUGHTER AT BEDSIDE WIPING HER MOTHER'S FACE. PATIENT GRIMACING IF SHE WERE IN PAIN OR UNCOMFORTABLE. PROPOFOL TURNED BACK ON FOR PATIENT'S COMFORT AT A LOW RATE OF 8 MCG/KG/MIN OR 6 ML/HR. TF PAUSED AND CHARGE NURSE NOTIFIED. PM MEDS GIVEN PER MD ORDERS, SEE MAR. VSS. WILL CTM.
--- NOTE | 2018-05-29 22:45 | NUR ---
PAGED SURGEON EMPLOYMENT CASE MANAGER BECAUSE PATIENT WAS FOUND WITH TUBE FEEDS POURING OUT OF HER MOUTH AND NOSE. DR. OLEA STATED TO TURN TUBE FEEDS OFF AND CONNECT NGT TO LIWS. NO OTHER NEW ORDERS AT THIS TIME. WILL CTM.
--- NOTE | 2018-05-29 23:00 | NUR ---
REASSESSMENT COMPLETED, SEE FLOWSHEET. PATIENT APPEARS TO BE RESTING COMFORTABLY. VSS. WILL CTM.
[2018-05-30] VITALS (45 sets, daily range): BP systolic 68–121; BP diastolic 40–746
--- NOTE | 2018-05-30 01:00 | NUR ---
PATIENT COULD NOT TOLERATE BEING TURNED TO THE RIGHT. BP DROPPED TO 70S SYSTOLIC. SEDATION TURNED OFF AT THIS TIME. PATIENT ALSO REPOSITIONED IN BED, SBP NOW 90S. WILL CTM.
--- NOTE | 2018-05-30 03:00 | NUR ---
REASSESSMENT COMPLETED, SEE FLOWSHEET. COMPLETE BED BATH AND LINEN CHANGE ALSO DONE. PATIENT ALSO HAD A HUGE BOWEL MOVEMENT DURING THE PROCESS, SOFT BROWN LIQUID AND MUSHY. VSS. WILL CTM.
[2018-05-30 04:02] LABS: MCH 28.2 pg (26.0-34.0); MCHC 35.4 g/dL (31.0-37.0); RDW 17.5 % (11.5-14.5); WBC 10.4 10x3/uL (4.8-10.8)
[2018-05-30 04:10] LABS: APTT 35.2 SECONDS (22.8-39.4); HEMATOCRIT 27.7 % (36.0-48.0); HEMOGLOBIN 9.8 g/dL (12-16); INR 1.34 (0.85-1.17); MCV 79.8 fL (80.0-100.0); PROTIME 16.1 SECONDS (11.6-15.0); RBC 3.47 10x6/uL (4.00-5.40)
[2018-05-30 04:11] LABS: PLATELET COUNT 49 10x3/uL (130-400)
[2018-05-30 04:21] LABS: ALBUMIN 2.7 g/dL (3.4-5.0); BILIRUBIN - TOTAL 7.8 mg/dL (0.2-1.3); CALCIUM 8.9 mg/dL (8.5-10.1); CREATININE - SERUM 3.7 mg/dL (0.6-1.3); PROTEIN - SERUM 5.6 g/dL (6.4-8.2); VANCOMYCIN - RANDOM 20.6 ug/mL (10.0-20.0)
[2018-05-30 04:22] LABS: ANION GAP 20.2 mmol/L (8-16); PHOSPHOROUS 4.3 mg/dL (2.5-4.9); POTASSIUM - SERUM 4.2 mmol/L (3.5-5.1)
[2018-05-30 04:54] LABS: EOSINOPHILS 1 % (0-7); LYMPHOCYTES 8 % (15-50); MONOCYTES 1 % (2-11); NEUTROPHILS 84 % (40-80); PLATELET ESTIMATE DECREASED
--- NOTE | 2018-05-30 05:00 | NUR ---
PATIENT APPEARS TO BE RESTING COMFORTABLY. VSS. DAUGHTER AT BEDSIDE WAITING FOR DR. GUIDO. WILL CTM.
--- NOTE | 2018-05-30 10:13 | NUR ---
Nutrition follow-up: TF off due to pt not tolerating. TPN continues @ 50 ml/hr labs reviewed Pt with pitting edema Levophed restarted Wt: 331# RDN continuing to manage TPN per surgery. Following.
--- NOTE | 2018-05-30 13:19 | NUR ---
0745: ASSESSMENT COMPLETE. 0800: DR. WYNN HERE. WOUND VAC REMOVED AND ABD WOUND EXPLORED AND IRRIGATED AT BEDSIDE BY DR. WYNN. INFORMED OF EMESIS AROUND NGT. NGT RPLACED WITH 16 IRISH SALEM SUMP WITH RETURN OF GREEN GASTRIC CONTENTS. 0830: QUEVEDO CATH DC'D. #16FR QUEVEDO INSERTED USING ASEPTIC TECHNIQUE WITH IMMEDIATE RETURN DARK LIN URINE. 1130: OETT PULLED BACK BY 2 CM BY RT. SECURED AT 21CM AT LIP LINE.
--- NOTE | 2018-05-30 15:00 | NUR ---
Wound vac dressing changed by Dr. Thompson using 2 white sponges and 2 black sponges.
[2018-05-31] VITALS (59 sets, daily range): BP systolic 76–112; BP diastolic 46–77
[2018-05-31 07:39] LABS: HEMATOCRIT 28.4 % (36.0-48.0); HEMOGLOBIN 10.2 g/dL (12-16); MCH 27.9 pg (26.0-34.0); MCHC 35.9 g/dL (31.0-37.0); MCV 77.8 fL (80.0-100.0); PLATELET COUNT 51 10x3/uL (130-400); RBC 3.65 10x6/uL (4.00-5.40); RDW 17.7 % (11.5-14.5); WBC 10.4 10x3/uL (4.8-10.8)
[2018-05-31 07:53] LABS: ALBUMIN 2.4 g/dL (3.4-5.0); ANION GAP 15.9 mmol/L (8-16); BILIRUBIN - TOTAL 9.15 mg/dL (0.2-1.3); CALCIUM 8.7 mg/dL (8.5-10.1); CREATININE - SERUM 3.5 mg/dL (0.6-1.3); MAGNESIUM - SERUM 2.2 mg/dL (1.8-2.4); PHOSPHOROUS 4.1 mg/dL (2.5-4.9); POTASSIUM - SERUM 3.9 mmol/L (3.5-5.1); PROTEIN - SERUM 5.6 g/dL (6.4-8.2)
[2018-05-31 08:05] LABS: LYMPHOCYTES 5 % (15-50); MONOCYTES 10 % (2-11); NEUTROPHILS 50 % (40-80); PLATELET ESTIMATE DECREASED
--- NOTE | 2018-05-31 08:30 | NUR ---
COSTA EUBANKS - AT BEDSIDE FOR ASSESSMENT - NOTIFIED OF FAMILY'S DESIRE TO DISCUSS PLAN OF CARE WITH PROVIDERS
--- NOTE | 2018-05-31 08:43 | NUR ---
CALLED DR. FRANCOIS REQUEST PAIN MEDICATION - LEFT VOICE MAIL - AWAITING CALL BACK
[2018-05-31 09:13] LABS: HAPTOGLOBIN 253 mg/dL (34-200)
--- NOTE | 2018-05-31 09:45 | NUR ---
DISCUSSED POC WITH DR. JENNIFER Deras MD IN ROOM WITH FAMILY TO DICUSS PLAN OF CARE - MD ANSWERED ALL QUIESTIONS TO FAMILY'S STATISFACTION
--- NOTE | 2018-05-31 09:53 | NUR ---
PAGED DR. DOMINGUEZ (BOILER SHOP MECHANIC) TO REVIEW ADMINISTERING AMIODERONE - AWATING CALL BACK
--- NOTE | 2018-05-31 09:55 | NUR ---
SPOKE TO DR. JALLOH - DISCUSSED HEART RHYTHM (SR TO AFIB) - INSTRUCTED TO GIVE AMIODERONE - SEE JOE - CPOC
--- NOTE | 2018-05-31 11:00 | NUR ---
DR. MERCADO AT BEDSIDE FOR ASSESSMENT - [facility] - CPOC
--- NOTE | 2018-05-31 12:06 | NUR ---
FAMILY AT BEDSIDE - ANSWERED ALL QUESTIONS TO FAMILY'S SATISFACTION
--- NOTE | 2018-05-31 13:30 | NUR ---
SPOKE TO DR. WYNN - INSTRCUTED TO D/C AMIODORONE IV - MD CHANGED METOPRORLOL TO SCHEDULED IV PUSH - do NOT administer amiorodone, per DR. WYNN - CPOC - FAMILY AT BEDSIDE ANSWERED ALL QUESTIONS TO FAMILY'S SATISFACTION
--- NOTE | 2018-05-31 13:30 | NUR ---
GLABADDER US DONE - AWAITING REPORT
[2018-05-31 13:56] LABS: BASOPHILS 0.7 % (0-2); EOSINOPHILS 1.3 % (0-7); HEMATOCRIT 26.4 % (36.0-48.0); HEMOGLOBIN 9.6 g/dL (12-16); IMMATURE GRANULOCYTES 1.3 % (0-5); LYMPHOCYTES 4.6 % (15-50); MCH 27.9 pg (26.0-34.0); MCHC 36.4 g/dL (31.0-37.0); MCV 76.7 fL (80.0-100.0); MONOCYTES 1.9 % (2-11); NEUTROPHILS 90.2 % (40-80); RBC 3.44 10x6/uL (4.00-5.40); RDW 17.8 % (11.5-14.5)
[2018-05-31 13:57] LABS: ANION GAP 18.4 mmol/L (8-16); BILIRUBIN - DIRECT 8.08 mg/dL (0.00-0.30); CALCIUM 8.8 mg/dL (8.5-10.1); CARBON DIOXIDE 24.5 mmol/L (21.0-32.0); CREATININE - SERUM 3.6 mg/dL (0.6-1.3); POTASSIUM - SERUM 3.9 mmol/L (3.5-5.1)
[2018-05-31 13:58] LABS: PLATELET COUNT 48 10x3/uL (130-400)
--- NOTE | 2018-05-31 14:00 | NUR ---
CRITICAL LAB REPORTED PLATELET 41 - INFORMED DR. FRANCOIS - AWAITING ANY NEW ORDERS
--- NOTE | 2018-05-31 14:02 | NUR ---
TRINIDAD Newell - AWARE -
--- NOTE | 2018-05-31 15:15 | NUR ---
SMALL SOFT STOOL - CHANGED LINENS AND BED CLOTHES - CPOC
--- NOTE | 2018-05-31 15:45 | NUR ---
CHANGED DRESSING ON BACK - 4X4 AND MEDIPORE TAPE - CPOC
--- NOTE | 2018-05-31 16:02 | NUR ---
FAMILY AT BEDSIDE - ANSWERED ALL QUESITONS TO FAMILY'S SATISFACTION - CPOC
--- NOTE | 2018-05-31 16:49 | NUR ---
CHANGED MANNIFOLD AND TUBING - FAMILY IN ROOM - ANSWERED ALL QUESTIONS TO FAMILY'S SATISFCTION - CPOC
--- NOTE | 2018-05-31 18:00 | NUR ---
PT RESTING - NO ACUTE CHANGES - CPOC
--- NOTE | 2018-05-31 19:05 | NUR ---
REPLACED CENTERAL LINE DRESSING WITH ASSISTANCE WITH PM RN. REPORT GIVEN CPOC
[2018-05-31 21:21] LABS: BASOPHILS 0.6 % (0-2); HEMATOCRIT 26.9 % (36.0-48.0); HEMOGLOBIN 9.6 g/dL (12-16); IMMATURE GRANULOCYTES 1.3 % (0-5); MCH 27.6 pg (26.0-34.0); MCHC 35.7 g/dL (31.0-37.0); MCV 77.3 fL (80.0-100.0); PLATELET COUNT 54 10x3/uL (130-400); RBC 3.48 10x6/uL (4.00-5.40); RDW 18.2 % (11.5-14.5); WBC 7.8 10x3/uL (4.8-10.8)
[2018-05-31 21:39] LABS: EOSINOPHILS 1 % (0-7); LYMPHOCYTES 8 % (15-50); MONOCYTES 1 % (2-11); NEUTROPHILS 53 % (40-80)
[2018-06-01] VITALS (52 sets, daily range): BP systolic 76–111; BP diastolic 36–69
[2018-06-01 05:56] LABS: HEMATOCRIT 26.9 % (36.0-48.0); HEMOGLOBIN 9.6 g/dL (12-16); MCH 27.7 pg (26.0-34.0); MCHC 35.7 g/dL (31.0-37.0); MCV 77.5 fL (80.0-100.0); RBC 3.47 10x6/uL (4.00-5.40); RDW 18.6 % (11.5-14.5); WBC 9.5 10x3/uL (4.8-10.8)
[2018-06-01 05:57] LABS: PLATELET COUNT 44 10x3/uL (130-400)
[2018-06-01 05:59] LABS: EOSINOPHILS 0.6 % (0-7); LYMPHOCYTES 3.5 % (15-50); MONOCYTES 1.7 % (2-11); NEUTROPHILS 92.2 % (40-80)
[2018-06-01 06:00] LABS: BASOPHILS 0.2 % (0-2); IMMATURE GRANULOCYTES 1.8 % (0-5)
[2018-06-01 06:36] LABS: ALBUMIN 2.4 g/dL (3.4-5.0); BILIRUBIN - TOTAL 12.42 mg/dL (0.2-1.3); CALCIUM 9.3 mg/dL (8.5-10.1); CARBON DIOXIDE 21.9 mmol/L (21.0-32.0); MAGNESIUM - SERUM 2.4 mg/dL (1.8-2.4); PHOSPHOROUS 5.1 mg/dL (2.5-4.9); PROTEIN - SERUM 5.6 g/dL (6.4-8.2); VANCOMYCIN - RANDOM 21.9 ug/mL (10.0-20.0)
[2018-06-01 06:39] LABS: ANION GAP 22.6 mmol/L (8-16); POTASSIUM - SERUM 4.5 mmol/L (3.5-5.1)
--- NOTE | 2018-06-01 07:00 | NUR ---
ETT SECURE TO VENT. BILATERAL LUNG SOUNDS EQUAL AND CONGESTED. LEFT IJ TRIPLE LUMEN CENTRAL LINE DRESSING DRY AND INTACT. INFUSING WITH LEVOPHED AT 15 MCG/MIN. FENTANYL AT 50 MCG/H. PLASAMLYTE AT 30 ML HOUR. TPN 50 ML HOUR. DIPIRIVAN AT 4.1 MCG/KG/MIN. BLOOD PRESSURE IN LOW 80'S SYSTOLIC. RESPONSE TO PAINFUL STIMULI, THEN PATIENT DID MOVE ARM ON REQUEST. DID NOT OBEY COMMANDS AT FIRST. MOVED ALL EXTREMITIES TO STIMULATION. GRIMACES TO PAIN. LARGE AMOUNT OF ORAL SECRETIONS FROM MOUTH . MOD AMOUNT FROM ETT. MONITOR SR IN 60'S. WOUND VAC ON ABD INCISION. BROWN DRAINAGE NOTED IN CONTAINER AND TUBING. NG TO LOW INTERMITTENT SUCTION BROWN DRAINAGE NOTED. NASAL DRAINAGE LEFT NARES AROUND NG TUBE DARK REDISH GREEN. THICK. CVP LINE FLUSHED AND ZEROED. QUEVEDO CATH WITH LESS THAN 5 CC OF URINE IN CONTAINER DARK LIN COLOR. SCD ON LOWER LEGS.
--- NOTE | 2018-06-01 08:04 | NUR ---
Nutrition follow-up: Chart reviewed. Cl low; PO4 elevated TPN electrolytes adjusted and new order sent to pharmacy. RDN following.
--- NOTE | 2018-06-01 09:00 | NUR ---
DAUGHTER AT BEDSIDE UPDATE GIVEN.
--- NOTE | 2018-06-01 11:00 | NUR ---
LEVOPHED INCREASED 25 MCG/MIN FOR BLOOD PRESSURE LESS THAN 90 SYSTOLIC AND MAP LESS THAN 60. DR. HYMAN NOTIFIED AND DR. WYNN ORDERS TO START VASOPRESSIN IF NEEDED.
--- NOTE | 2018-06-01 12:00 | NUR ---
DR. WYNN NOTIFIED OF LOPRESSOR HELD THIS AM FOR HEART RATE 64 SR, BLOOD PRESSURE [address] WYNN AND BOOGIE TALKED WITH DAUGHTER AT GREAT LENGTH.
--- NOTE | 2018-06-01 14:00 | NUR ---
LEVOPHED AT 24 MCG/KG/MIN. BLOOD PRESSURE IN 90 WITH MAP OF 60. LOPRESSOR GIVEN . DIPRIVAN AND FENTANYL WITHOUT CHANGE. PATIENT RESTING COMFORTABLY.
[2018-06-01 14:16] LABS: BASOPHILS 0.6 % (0-2); EOSINOPHILS 0.4 % (0-7); HEMATOCRIT 25.2 % (36.0-48.0); HEMOGLOBIN 9.1 g/dL (12-16); IMMATURE GRANULOCYTES 2.1 % (0-5); MCH 28.1 pg (26.0-34.0); MCHC 36.1 g/dL (31.0-37.0); MCV 77.8 fL (80.0-100.0); MONOCYTES 3.2 % (2-11); NEUTROPHILS 89.7 % (40-80); RBC 3.24 10x6/uL (4.00-5.40); RDW 18.8 % (11.5-14.5); WBC 11.3 10x3/uL (4.8-10.8)
[2018-06-01 14:17] LABS: PLATELET COUNT 64 10x3/uL (130-400)
--- NOTE | 2018-06-01 16:00 | NUR ---
NO CHANGES SUCTION MODERATE AMOUNT FROM ETT AND ORALLY. CREAM AROUND LIPS TO TONGUE. RESTING COMFORTABLY. LEVOPHED AT 23 MCG. FENTANYL AT 50 MCG, DIPRIVAN AT 4.1 MCG/KG/MIN.
--- NOTE | 2018-06-01 17:21 | NUR ---
FAMILY AT BEDSIDE. NO CHANGES . REPOSITIONED
[2018-06-01 18:06] LABS: ADAMTS13 ACTIVITY 29.8 % (>66.8)
[2018-06-01 20:46] LABS: BASOPHILS 0.5 % (0-2); EOSINOPHILS 0.1 % (0-7); HEMATOCRIT 24.3 % (36.0-48.0); HEMOGLOBIN 8.8 g/dL (12-16); IMMATURE GRANULOCYTES 2.5 % (0-5); LYMPHOCYTES 4.8 % (15-50); MCH 27.8 pg (26.0-34.0); MCHC 36.2 g/dL (31.0-37.0); MCV 76.7 fL (80.0-100.0); NEUTROPHILS 90.1 % (40-80); PLATELET COUNT 55 10x3/uL (130-400); RBC 3.17 10x6/uL (4.00-5.40); RDW 18.8 % (11.5-14.5)
[2018-06-01 20:47] LABS: WBC 8.4 10x3/uL (4.8-10.8)
[2018-06-02] VITALS (64 sets, daily range): BP systolic 93–148; BP diastolic 45–575
--- NOTE | 2018-06-02 07:00 | NUR ---
REC'D REPORT RESUMED CARE, ETT TO VENTILATION AND SECURED, O2 97% WITH 40% FI2, VSS, PRESSOR IN USE, SHOWING NS ON MONITOR WITH RATE OF 77, ASSESSEMENT COMPLETED PER FLOWSHEET, DAUGHTER AT BEDSIDE, STATUS UPDATED, VOICES NO NEEDS AT THIS TIME
[2018-06-02 07:27] LABS: HEMATOCRIT 24.7 % (36.0-48.0); HEMOGLOBIN 8.8 g/dL (12-16); MCH 27.2 pg (26.0-34.0); MCHC 35.6 g/dL (31.0-37.0); MCV 76.5 fL (80.0-100.0); PLATELET COUNT 63 10x3/uL (130-400); RBC 3.23 10x6/uL (4.00-5.40); RDW 19.3 % (11.5-14.5); WBC 8.9 10x3/uL (4.8-10.8)
[2018-06-02 07:30] LABS: INR 1.61 (0.85-1.17); PROTIME 18.6 SECONDS (11.6-15.0)
--- NOTE | 2018-06-02 07:30 | NUR ---
TEMP 101.1, COVERS OFF, RESP, BLOOD, AND RESP CULTURES ORDERED
[2018-06-02 07:38] LABS: ALBUMIN 2.5 g/dL (3.4-5.0); BILIRUBIN - TOTAL 17.34 mg/dL (0.2-1.3); CALCIUM 8.9 mg/dL (8.5-10.1); CARBON DIOXIDE 22.5 mmol/L (21.0-32.0); CREATININE - SERUM 4.7 mg/dL (0.6-1.3); MAGNESIUM - SERUM 2.5 mg/dL (1.8-2.4); PHOSPHOROUS 5.8 mg/dL (2.5-4.9); PROTEIN - SERUM 5.4 g/dL (6.4-8.2); VANCOMYCIN - RANDOM 18.3 ug/mL (10.0-20.0)
[2018-06-02 07:40] LABS: ANION GAP 21.9 mmol/L (8-16); POTASSIUM - SERUM 5.4 mmol/L (3.5-5.1)
[2018-06-02 07:46] LABS: APTT 37.2 SECONDS (22.8-39.4)
[2018-06-02 08:32] LABS: LYMPHOCYTES 6 % (15-50); MONOCYTES 6 % (2-11); NEUTROPHILS 64 % (40-80); PLATELET ESTIMATE DECREASED; TARGET CELLS 1+
[2018-06-02 08:33] LABS: HYPOCHROMASIA OCC; ROULEAUX OCC; STOMATOCYTES OCC
--- NOTE | 2018-06-02 09:00 | NUR ---
MORNING MEDS GIVEN PER JUL FLOWSHEET
--- NOTE | 2018-06-02 09:49 | NUR ---
Nutrition follow-up: Chart reviewed. Metabolic acidosis per licensed retail supervisor. Actetate added; K, PO4 taken out of TPN formula Order entered. RDN following.
--- NOTE | 2018-06-02 10:00 | NUR ---
HD BEGAN, VSS
--- NOTE | 2018-06-02 10:41 | NUR ---
CONTINUES ON HD, HR 131, AFIB, 96/48 METOPROLOL 5 MG IVP GIVEN PER PRN ORDER
--- NOTE | 2018-06-02 11:20 | NUR ---
FSBS 327, 8 UNIT REG INS PER S/S GIVEN
--- NOTE | 2018-06-02 12:35 | NUR ---
DAUGHTER RYLAND AT BEDSIDE, STATUS UPDATED VOICES NO NEEDS AT THIS TIME, PATIENT CONTNIUES ON HD, 2L OFF AT THIS TIME
--- NOTE | 2018-06-02 13:00 | NUR ---
HD COMPLETE, 3L OF VSS, WILL CONTINUE WITH POC, DAUGHTER AT BEDSIDE, NO OTHER CHANGES OR NEEDS AT THIS TIME
[2018-06-02 14:17] LABS: HEPARIN INDUCED PLATELET AB 0.553 OD (0.000-0.400)
--- NOTE | 2018-06-02 15:34 | NUR ---
VAC DRESSING CHANGED BY DR. WYNN. 2 WHITE SPONGES 2 BLACK SPONGES. WOUND BED WITH UNDERMINING IS APPROX 60CM IN WIDTH. PT INTUBATES/SEDATED.
--- NOTE | 2018-06-02 18:00 | NUR ---
BATH AND LINEN CHANGE COMPLETED, ORAL CARE AND SUCTION COMPLETED, VSS, REPOSITIONED UP AND TO BACK WITH HEELS FLOATED
--- NOTE | 2018-06-02 19:14 | NUR ---
REPORT RECEIVED, CARE ASSUMED. INITIAL ASSESSMENT COMPLETED, SEE FLOWSHEET. NO SIGNS OF ACUTE CHANGES. NO SIGNS OF ACUTE DISTRESS. WILL CONTINUE TO MONITOR.
--- NOTE | 2018-06-02 21:14 | NUR ---
PT REPOSITIONED FOR COMFORT. NO SIGNS OF ACUTE DISTRESS. WILL CONTINUE TO MONITOR.
--- NOTE | 2018-06-02 23:14 | NUR ---
REASSESSMENT COMPLETED, SEE FLOWSHEET. PT REPOSITIONED FOR COMFORT. NO ACUTE CHANGES NOTED. NO SIGNS OF ACUTE DISTRESS. WILL CONTINUE TO MONITOR CLOSELY.
[2018-06-03] VITALS (54 sets, daily range): BP systolic 88–111; BP diastolic 48–71
--- NOTE | 2018-06-03 01:15 | NUR ---
PT SEDATED AND INTUBATED ON THE VENT. PT REPOSITIONED FOR COMFORT. NO SIGNS OF ACUTE DISTRESS. WILL CONTINUE TO MONITOR.
--- NOTE | 2018-06-03 03:15 | NUR ---
REASSESSMENT COMPLETED, SEE FLOWSHEET. PT REPOSITIONED FOR COMFORT. NO SIGNS OF ACUTE DISTRESS. WILL CONTINUE TO MONITOR.
[2018-06-03 04:24] LABS: BASOPHILS 0.3 % (0-2); EOSINOPHILS 0 % (0-7); HEMATOCRIT 23.9 % (36.0-48.0); HEMOGLOBIN 8.7 g/dL (12-16); LYMPHOCYTES 4.9 % (15-50); MCH 27.4 pg (26.0-34.0); MCHC 36.4 g/dL (31.0-37.0); MCV 75.4 fL (80.0-100.0); NEUTROPHILS 90.8 % (40-80); PLATELET COUNT 63 10x3/uL (130-400); RBC 3.17 10x6/uL (4.00-5.40); RDW 19.3 % (11.5-14.5)
[2018-06-03 04:27] LABS: WBC 6.1 10x3/uL (4.8-10.8)
[2018-06-03 04:39] LABS: ALBUMIN 2.5 g/dL (3.4-5.0); BILIRUBIN - TOTAL 18.75 mg/dL (0.2-1.3); CALCIUM 9.1 mg/dL (8.5-10.1); CARBON DIOXIDE 23.9 mmol/L (21.0-32.0); CREATININE - SERUM 3.7 mg/dL (0.6-1.3); MAGNESIUM - SERUM 2.2 mg/dL (1.8-2.4); PROTEIN - SERUM 5.9 g/dL (6.4-8.2); VANCOMYCIN - RANDOM 16.6 ug/mL (10.0-20.0)
[2018-06-03 04:44] LABS: ANION GAP 19.4 mmol/L (8-16); POTASSIUM - SERUM 4.3 mmol/L (3.5-5.1)
--- NOTE | 2018-06-03 05:15 | NUR ---
PT REPOSITIONED FOR COMFORT. NO SIGNS OF ACUTE DISTRESS. WILL CONTINUE TO MONITOR.
--- NOTE | 2018-06-03 07:00 | NUR ---
REC'D REPORT AND RESUMED CARE, ASSESSMENT COMPLETED PER FLOWSHEET, ORAL CARE AND SUCTION COMPLETED, REPOSITIONED TO LEFT SIDE, VSS, PRESSORS IN USE
--- NOTE | 2018-06-03 08:15 | NUR ---
DR. WYNN AT BEDSIDE, COUNSELED WITH DAUGHTER RE POOR PROGNOSIS AND CODE STATUS CHANGE TO DNR, DECISION MADE TO HAVE TRACH PLACED AND FURTHER ABDOMINAL SURGERY ON 06/04, OZIEL DRAIN EMPITIED OF 100 CC PURULENT DRAINAGE
--- NOTE | 2018-06-03 10:11 | NUR ---
DR MAZA AT BEDSIDE FOR EVAL
--- NOTE | 2018-06-03 11:00 | NUR ---
NO ACUTE CHANGE FROM PREVIOUS ASSESSMENT, VSS, ORAL CARE AND SUCTION COMPLETED
--- NOTE | 2018-06-03 12:00 | NUR ---
DAUGHTER RYLAND AT BEDSIDE, STATUS UPDATED, VOICES NO NEEDS AT THIS TIME
--- NOTE | 2018-06-03 15:00 | NUR ---
ASSESSMENT COMPLETED PER FLOWSHEET, VSS, PRESSORS IN USE, ORAL CARE AND SUCTION COMPLETED, SMALL MUCUS LIKE STOOL, SKINCARE AND LINEN CHANGE COMPLETED, NO ACUTE CHANGE FROM PREVIOUS
--- NOTE | 2018-06-03 16:00 | NUR ---
I AND O'S COMPLETED, DAUGHTER AT BEDSIDE, STATUS UPDATED, NO NEEDS AT THIS TIME
--- NOTE | 2018-06-03 17:30 | NUR ---
REPOSITIONED UP AND TO BACK UPPER EXTREMETIES ELLEVATED WITH PILLOW, ORAL CARE AND SUCTION COMPLETED, VSS, CONTINUES TO BE ON PRESSORS, SEDATION IN USE
--- NOTE | 2018-06-03 19:14 | NUR ---
REPORT RECEIVED, CARE ASSUMED. INITIAL ASSESSMENT COMPLETED, SEE FLOWSHEET. PT REPOSITIONED FOR COMFORT. NO SIGNS OF ACUTE DISTRESS. WILL CONTINUE TO MONITOR.
--- NOTE | 2018-06-03 21:14 | NUR ---
PT REPOSITIONED FOR COMFORT. ORAL CARE AND SUCTIONING PERFORMED. NO SIGNS OF ACUTE DISTRESS. WILL CONTINUE TO MONITOR.
--- NOTE | 2018-06-03 23:15 | NUR ---
REASSESSMENT COMPLETED, SEE FLOWSHEET. NO ACUTE CHANGES NOTED. NO SIGNS OF ACUTE DISTRESS. PT REPOSITIONED FOR COMFORT. TITRATING LEVAPHED. WILL CONTINUE TO MONITOR.
[2018-06-04] VITALS (43 sets, daily range): BP systolic 69–178; BP diastolic 40–138
--- NOTE | 2018-06-04 01:15 | NUR ---
PT REPOSITIONED FOR COMFORT. ORAL CARE AND SUCTIONING PERFORMED. NO SIGNS OF ACUTE DISTRESS. WILL CONTINUE TO MONITOR.
--- NOTE | 2018-06-04 03:11 | NUR ---
REASSESSMENT COMPLETED, SEE FLOWSHEET. COMPLETED SURGICIAL BATH GIVEN. COMPLETED BED LINEN CHANGE COMPLETED. PT REPOSITIONED FOR COMFORT. NO SIGNS OF ACUTE DISTRESS. WILL CONTINUE TO MONITOR.
[2018-06-04 04:07] LABS: HEMATOCRIT 25.2 % (36.0-48.0); MCHC 35.7 g/dL (31.0-37.0); MCV 75.7 fL (80.0-100.0); RBC 3.33 10x6/uL (4.00-5.40); RDW 20.1 % (11.5-14.5); WBC 7.5 10x3/uL (4.8-10.8)
[2018-06-04 04:08] LABS: PLATELET COUNT 47 10x3/uL (130-400)
[2018-06-04 04:25] LABS: LYMPHOCYTES 10 % (15-50); MONOCYTES 1 % (2-11); NEUTROPHILS 71 % (40-80); PLATELET ESTIMATE DECREASED; PLATELET MORPHOLOGY NO PLT CLUMPS SEEN
[2018-06-04 04:27] LABS: MAGNESIUM - SERUM 2.3 mg/dL (1.8-2.4); PHOSPHOROUS 5.8 mg/dL (2.5-4.9); VANCOMYCIN - RANDOM 14.5 ug/mL (10.0-20.0)
--- NOTE | 2018-06-04 05:11 | NUR ---
CRITICAL ABG LAB RESULT CALLED INTO DR RAMOS, NEW ORDERS RECEIVED. PT REPOSITIONED FOR COMFORT. NO SIGNS OF ACUTE DISTRESS. WILL CONTINUE TO MONITOR.
--- NOTE | 2018-06-04 07:00 | NUR ---
ett secure to vent bilateral lung sounds congested and equal. suctioning large amount jack yellow liquid about every 15 min. ng to suction. minimal drainage. almaz drain right side abd with dark red drainage bulb compressed. de la rosa patent with small amount urine in container less than [address] rij trialysis cath intact dressing dry. left ij triple lumen infusing with tpn at 50 ml hour, plamalyte at kvo for ivpb. levophed at 6 ,cg/ diprivan at 8 mcg. fentanyl at 50 mcg. responsive to painful stimuli. wound vac to abd wound brown drainage noted. going to surgery today. .
[2018-06-04 08:00] LABS: ALBUMIN 2.6 g/dL (3.4-5.0); ANION GAP 23.2 mmol/L (8-16); BILIRUBIN - TOTAL 20.63 mg/dL (0.2-1.3); CALCIUM 9.4 mg/dL (8.5-10.1); CARBON DIOXIDE 20.7 mmol/L (21.0-32.0); CREATININE - SERUM 4.3 mg/dL (0.6-1.3); POTASSIUM - SERUM 4.9 mmol/L (3.5-5.1)
--- NOTE | 2018-06-04 09:00 | NUR ---
children at bedside. talked with dr. jernigan. leeanna understand poor progrnosis. levophed increased during dialysis
--- NOTE | 2018-06-04 09:38 | NUR ---
Nutrition follow-up: Pt to surgery today for trach, new CVL placement. HD at this time Labs reviewed Na, Cl low; CO2 low, elevated LFT's Lytes adjusted and new TPN order to pharmacy RDN following.
--- NOTE | 2018-06-04 10:00 | NUR ---
blood pressure dropped during dialysis levophed increased 15 mcg to maintain sys bp above 90
--- NOTE | 2018-06-04 11:00 | NUR ---
preop given dialysis discontinueing. vancomycin started. blood drawn for platelets. family at bedside
--- NOTE | 2018-06-04 12:00 | NUR ---
to or per bed.
--- NOTE | 2018-06-04 14:30 | NUR ---
received patient from or, per bed. heart monitor rate of 150. epi gtt infusing and neosynphrine gtt infusing. levophed gtt infusing . pupils fixed. ett tube secure bilateral lung sounds present, right groin line infusing with ns. palable femerol pulse.suctin large amount from ett jack dark yellow liquid fills ett up completely. suction mouth, nose. new line right and left subclavian. chest x-ray done. right triple lumen, left is trialysis dialysis catheter. chest shows pneumothrox, chest tube pleuravac, chest tube tray setup per dr. holt. dr. holt talked with family in conference rom. all gtts turned off at family request. family at patient bedside
--- NOTE | 2018-06-04 15:24 | NUR ---
PATIENT ASYSTOLE AT 1409. SEE CODE SHEET. 1418 PULSE RETURNED. 1429 TRANSPORTED BACK TO ICU.
--- NOTE | 2018-06-04 15:30 | NUR ---
PT ASYSTOLE ON THE MONITOR, DR. WYNN AT BEDSIDE TO PRONOUNCE
--- NOTE | 2018-06-04 15:36 | NUR ---
ROSSI NOTIFIED OF PT ,
--- NOTE | 2018-06-04 16:12 | NUR ---
HOME NOTIFIED OF PT AND NEED OF SERVICES
--- NOTE | 2018-06-05 10:26 | MORECARE ---
CASE MANAGEMENT DISCHARGE SUMMARY PATIENT: GASTON FITZGERALD UNIT: [id number] ADM DATE: 05/19/18 AGE: 72 : 41 SEX: F ROOM/BED: D.2306 AUTHOR: ROBDOC PHYSICIAN: REFERRING PHYSICIAN: HOLLY FRANCOIS MD DATE OF SERVICE: 06/05/18 Discharge Plan Patient Name: GASTON FITZGERALD Facility: [facility]:[place] : 1945 Planned Disposition: Anticipated Discharge Date: 05/21/18 Discharge Date: 06/04/2018 Expected LOS: 2 Initial Reviewer: [email or web address] Initial Review Date: 05/19/2018 Generated: 06/05/18 11:26 am DCP- Discharge Planning Updated by [email or web address]: Oanh Altman on 05/19/18 9:[address] Patient Name: GASTON FITZGERALD Admission Status: ER Accout number: [id number] Admission Date: 05-19-2018 : 1945 Admission Diagnosis: Attending: HOLLY FRANCOIS Current LOS: 1 Anticipated DC Date: 05-21-2018 Planned Disposition: Primary Insurance: [facility] [employer] Discharge Planning Comments: CM met with patient and her son Catracho to complete initial dc planning assessment. CM educated patient on the CM role and verbal consent given by patient to complete assessment. Patient lives at home with her . She reports she is independent in her ADL"s and IADL"s. At discharge patient plans to return home with her and feels this is a safe discharge. Patient denied known discharge needs at this time. CM will continue to follow and will assist as needed with dc plans/needs. Hob Grinder: Oanh Altman RN, [facility] DCPIA - Discharge Planning Initial Assessment Updated by [email or web address]: Oanh Altman on 05/19/18 10:28 am * Is the patient Alert and Oriented? Yes * How many steps to enter\\exit or inside your home? * PCP Dr. Angel Treviño * Pharmacy [facility] in [place] * Preadmission Environment Home with Family * ADLs Independent * Equipment Cane * List name and contact numbers for known caregivers / representatives who currently or will assist patient after discharge: Catracho Gonzalez - son - [phone] * Verbal permission to speak to the caregivers and representatives has been obtained from the patient. Yes * Community resources currently utilized None * Additional services required to return to the preadmission environment? No * Can the patient safely return to the preadmission environment? Yes * Has this patient been hospitalized within the prior 30 days at any hospital? No Last DP export: 05/19/18 9:31 am Patient Name: GASTON FITZGERALD Page [id number] at 1026 All edits/amendments must be made on the electronic document DICTATION DATE: 06/05/18 1026 BAR EXAMINER: BERNABE 06/05/18 1026 RPT#: [id number] DC DATE:06/04/18 STATUS: DIS IN [facility] [address] [place] [address] END OF REPORT
--- NOTE | 2018-06-05 15:20 | NUR ---
Per CMS protocol, restraint report logged into data base.
== END 2018-06-04 17:28 | DRG 329 ==
LOC: D.ER 22:14 → D.EDHOLD 05-19 02:53 → D.ICU 05-19 02:53 → D.WS 05-19 02:53 → D.EDHOLD 05-19 09:23 → D.WS 05-19 12:01 → D.MS 05-20 17:08 → D.ICU 05-21 22:37
PROVIDERS: Emergency Medicine; Family Medicine; Internal Medicine; Internal Medicine Hematology & Oncology; Internal Medicine Nephrology; Internal Medicine Pulmonary Disease; Surgery; ADMIT Internal Medicine Nephrology
PROC: 05HN33Z Insertion of Infusion Device into Left Internal Jugular Vein, Percutaneous Approach (ICD-10-PCS; 2018-05-21)
PROC: 0WUF4JZ Supplement Abdominal Wall with Synthetic Substitute, Percutaneous Endoscopic Approach (ICD-10-PCS; principal; 2018-05-21 11:30)
PROC: 0DTF4ZZ Resection of Right Large Intestine, Percutaneous Endoscopic Approach (ICD-10-PCS; 2018-05-21 11:30)
PROC: 0BH17EZ Insertion of Endotracheal Airway into Trachea, Via Natural or Artificial Opening (ICD-10-PCS; 2018-05-22)
PROC: 03HY32Z Insertion of Monitoring Device into Upper Artery, Percutaneous Approach (ICD-10-PCS; 2018-05-22)
PROC: 5A1955Z Respiratory Ventilation, Greater than 96 Consecutive Hours (ICD-10-PCS; 2018-05-22)
PROC: 05HM33Z Insertion of Infusion Device into Right Internal Jugular Vein, Percutaneous Approach (ICD-10-PCS; 2018-05-23)
DX: K56.609 Unspecified intestinal obstruction, unspecified as to partial versus complete obstruction (principal); J96.01 Acute respiratory failure with hypoxia; J96.02 Acute respiratory failure with hypercapnia; R65.21 Severe sepsis with septic shock; N17.0 Acute kidney failure with tubular necrosis; K72.00 Acute and subacute hepatic failure without coma; J18.9 Pneumonia, unspecified organism; K65.9 Peritonitis, unspecified; D65 Disseminated intravascular coagulation [defibrination syndrome]; A41.9 Sepsis, unspecified organism; K63.1 Perforation of intestine (nontraumatic); I13.0 Hypertensive heart and chronic kidney disease with heart failure and stage 1 through stage 4 chronic kidney disease, or unspecified chronic kidney disease; N30.00 Acute cystitis without hematuria; E87.2 Acidosis; T81.30XA Disruption of wound, unspecified, initial encounter; Z68.42 Body mass index [BMI] 45.0-49.9, adult; D62 Acute posthemorrhagic anemia; E87.0 Hyperosmolality and hypernatremia; I50.32 Chronic diastolic (congestive) heart failure; J93.9 Pneumothorax, unspecified; I46.9 Cardiac arrest, cause unspecified; N18.9 Chronic kidney disease, unspecified; Z66 Do not resuscitate; R11.2 Nausea with vomiting, unspecified; E86.0 Dehydration; K43.2 Incisional hernia without obstruction or gangrene; E66.01 Morbid (severe) obesity due to excess calories; D72.829 Elevated white blood cell count, unspecified; K59.00 Constipation, unspecified; M19.90 Unspecified osteoarthritis, unspecified site; H26.9 Unspecified cataract; T68.XXXA Hypothermia, initial encounter; I48.91 Unspecified atrial fibrillation; Y95 Nosocomial condition; B95.1 Streptococcus, group B, as the cause of diseases classified elsewhere; D50.9 Iron deficiency anemia, unspecified